=== PATIENT | female | born 1940 | race Caucasian/White ===

== ENCOUNTER → 2018-04-14 11:23 | Outpatient (CLI) | payer MEDICARE, SELFPAY ==
[2018-04-14 11:47] LABS: WBC Urine None Seen (0-5/HPF)
[2018-04-14 13:17] LABS: Add Manual Diff / Slide Review NO; Appearance Urine UA CLEAR; Basophils Percent Auto 0.7 % (0-2); Bilirubin Urine UA NEGATIVE (NEGATIVE); Color Urine UA YELLOW; Eosinophils Percent Auto 2.9 % (2-4); Glucose Urine UA NEGATIVE (Normal); Hemoglobin 12.8 g/dL (12.0-16.0); Ketones Urine UA NEGATIVE (NEGATIVE); Leukocyte Esterase Urine UA NEGATIVE (NEGATIVE); Lymphocytes Percent Auto 31.3 % (25-40); Mean Corpuscular HGB Conc 33.8 % (30-36); Mean Corpuscular Hemoglobin 29.8 PG (26-34); Mean Corpuscular Volume 88.3 fL (80-100); Monocytes Percent Auto 11.3 % (3-14); Neutrophils Absolute Auto 2300 /uL (3000-5900); Neutrophils Percent Auto 53.8 % (50-75); Nitrite Urine UA Negative (Negative); Occult Blood Urine UA TRACE-INTACT (Negative); Platelet Count 180 X10^3/uL (150-400); Protein Urine UA NEGATIVE (Negative); Red Cell Distribution Width 12.2 % (11.6-14.8); Specific Gravity Urine UA <=1.005 (1.000-1.035); Urobilinogen Urine UA 0.2 E.U./dL (0.2); White Blood Cell Count 4.2 X10^3/uL (4.5-11.0)
[2018-04-14 13:35] LABS: Bacteria Urine Occasional (0-1); Culture Indicated Urine Cult Not Indicated; RBC Urine 0-1/HPF (0-5/HPF); Squamous Epithelial Cell Urine 0-1 /HPF
[2018-04-14 13:41] LABS: BUN Creatinine Ratio 13.3 (6-22); Blood Urea Nitrogen 12 mg/dL (7-17); Calcium 9.5 mg/dL (8.4-10.2); Carbon Dioxide 33 mmol/L (22-32); Chloride 92 mmol/L (98-107); Estimated Glomerular Filt Rate > 60.0 mL/min (>60); Glucose 91 mg/dL (80-110); HEMOLYSIS < 15 (0-50); Potassium 4.3 mmol/L (3.4-5.1); Sodium 134 mmol/L (137-145)
== END ==
PROVIDERS: Family Provider Specialist; Visit Provider Orthopaedic Surgery
DX: Z01.818 Encounter for other preprocedural examination (principal); Z01.812 Encounter for preprocedural laboratory examination; N39.9 Disorder of urinary system, unspecified; R73.09 Other abnormal glucose; R31.9 Hematuria, unspecified
CPT/HCPCS: 36415; 80048; 81001; 83036; 85025; 93005

== ENCOUNTER 2018-04-25 06:34 | Inpatient (IN) | payer MEDICARE, SELFPAY ==
[2018-04-07 10:48] VITALS: BMI 23.5
[2018-04-25] VITALS (16 sets, daily range): BP systolic 88–155; BP diastolic 50–73; PULSE 53–93; RESP 12–17; TEMP 35.6–36.4; O2SAT 93–100; BMI 22.8
[2018-04-25] MEDS: VANCOMYCIN 1,000 MG/200 ML FROZ.PIGGY 200 MG IV (07:15)
[2018-04-25] MEDS: LACTATED RINGERS 1,000 ML 42 ML IV ×2 (07:15→09:58)
[2018-04-25] MEDS: ACETAMINOPHEN 325 MG TABLET 975 MG PO ×2 (07:39→22:17)
[2018-04-25] MEDS: PREGABALIN 75 MG CAPSULE PO (07:39)
[2018-04-25] MEDS: DEXAMETHASONE 10 MG/ML VIAL 8 MG IV (07:40)
[2018-04-25] MEDS: ONDANSETRON 4 MG/2 ML INJ IV ×4 (07:41→16:09)
--- NOTE | 2018-04-25 07:46 | SUR.PREOP ---
medicated with lyrica, tylenol and ondansetron and decadron- dr french aware.
--- NOTE | 2018-04-25 07:55 | SUR.PREOP ---
iv started by lizeth chacon
--- NOTE | 2018-04-25 07:59 | PM.PREOP ---
Pre-operative Note Interval Note Pre-op Check: History & Physical Reviewed by Physician and Exam Performed
[2018-04-25] MEDS: CEFAZOLIN 2 GM/100 ML FROZ.PIGGY IV ×2 (08:00→17:38)
--- NOTE | 2018-04-25 08:00 | PM.OP.1 ---
Operative Date/Time/Diagnoses Date of procedure: 04/25/18 Time of procedure: 08:10 Pre-op diagnosis: Right hip OA Post-op diagnosis: same Procedure & Clinicians Procedure: Right total hip arthroplasty Same procedure as scheduled: Yes Indications: The patient has had progressively worsening right hip pain with radiographic changes consistent with arthritis. Non-operative management has failed and the patient has requested total hip replacement. The risks, benefits and alternatives to surgery were discussed with the patient prior to proceeding. Risks discussed included, but were not limited to, failure to relieve pain, leg length discrepancy, dislocation, stiffness, infection, nerve damage, deep venous thrombosis, pulmonary embolism, stroke, coma, heart attack, permanent paralysis and , as well as the potential need for eventual revision of the prosthetic. Surgeon: Cherrie Swain Machine Puller: Van Myers Anesthesia Type: General and Spinal Operative Notes Findings: Severe right hip osteoarthritis, adequate stability Closure Type: primary Specimen(s): none sent Implants & Drains: Swain and Nephew R3 52, anthology 7 SO, +4 Applied: drain(s) Estimated Blood Loss (mL): 250 Blood products transfused: none Procedure in detail: The patient was seen in the pre-operative area, where the patient identified the right hip as the operative site and this was marked with my initials. The patient received pre-operative antibiotics and was taken to the operating room and placed on the operative table in the left lateral decubitus position after satisfactory anesthesia. A static balancer out was performed. The right leg was prepared from the ankle to the iliac crest with ChloroPrep in the usual fashion and draped through sterile drapes. The hip was approached through an approximately 20 cm incision centered over the greater trochanter and curving gently posteriorly as it went proximally. This was carried sharply to the fascia jessee, which was divided and retracted with a self retaining retractor. The trochanteric bursa was excised with care being taken to avoid the sciatic nerve, which was identified and protected throughout the case. The short external rotators were incised and the capsulomuscular flap was raised and tagged for later repair. The hip was dislocated, and a femoral neck osteotomy performed approximately 15 mm above the lesser trochanter. Retractors were placed around the femur. The canal was opened with a box cutting osteotome, followed by a T handled reamer and a lateralizing reamer. The chili pepper broach was then used, followed by sequential broaching until there was good stability of the broach in the femur. Retractors were placed to expose the acetabulum. The labrum and central soft tissues were removed. Reaming was performed initially going up in 2 mm increments, then 1 mm increments until good bite was obtained with an odd sized reamer. The cup 1 mm larger than the last reamer was then inserted using the appropriate anteversion guides. A trial neutral liner was placed. The broach was placed in the canal. A trial head and neck were then placed and the hip relocated and checked for leg length and stability. An intraoperative film confirmed the component position and no evidence of fracture. The patient was stable in the position of sleep, of squatting, and could be put through a range of motion with 45 degrees internal rotation without dislocation. At 90 degrees flexion, internal rotation to 70 degrees was possible before dislocation. This was felt to be satisfactory and the appropriate components were opened, and the trials were removed. The acetabular liner was impacted into position. The final stem was then impacted into the prepared femoral canal. A brief Betadine soak was performed while trialing with head options. The hip was meticulously irrigated with normal saline. Finally the femoral head was impacted onto the stem. The acetabulum was cleared of all material and the hip relocated one final time. The capsulomuscular flap was then repaired to the greater trochanter though an awl hole using the tag sutures. The short external rotators were repaired with a black braided nylon. A deep drain was placed and brought out anteriorly. The fascia jessee was closed with black braided nylon. The subcutaneous layer was closed with barbed sutures and SteriStrips. An Aquacel Ag dressing was applied and the patient was taken to recovery having tolerated the procedure well. Complications: none Condition: stable Disposition: Acute Care Plan for aftercare: The patient will be maintained on a standard total hip replacement protocol with weight bearing as tolerated and posterior hip precautions. The patient will receive aspirin and sequential compression devices for DVT prophylaxis. The patient will be discharged home when safe for the home environment.
--- NOTE | 2018-04-25 08:36 | SUR.OPER ---
Lateral on padded OR bed. Gel axillary roll. Arms secured on padded armboard with pillow supporting top arm. Padded hip positioner braces x4 - anterior and posterior chest and pelvis. Additional gel pad used anterior pelvis. Gel pad under bottom leg from knee to foot and secured with tape over sheet.
[2018-04-25] MEDS: BUPIVACAINE 0.25% W/ EPI 50 ML VIAL INJ (08:45)
[2018-04-25] MEDS: SODIUM CHLORIDE IRRIG SOLUTION 250 ML, EPINEPHrine 1 MG IRR (08:48)
[2018-04-25] MEDS: BUPIVACAINE LIPOSOME 266 MG/20 ML VIAL INJ (08:49)
--- NOTE | 2018-04-25 09:22 | DI.RAD.S_ITS ---
PROCEDURE: XR PELVIS 1-2V INDICATIONS: [facility] HIP TECHNIQUE: Intra-operative view of the pelvis and hip acquired. [facility] [place], XR PELVIS WITH BILATERAL LATERAL HIPS, 02/22/2018, 13:18. FINDINGS: Bones: Intraoperative devices prior to placement of arthroplasty prostheses are in expected positions. No fractures or suspicious bony lesions. Soft tissues: Overlying surgical retractors are present, along with other intraoperative changes. IMPRESSION: Intraoperative imaging of total right hip arthroplasty. Status post total left hip arthroplasty. Dictated by: Octavio Murphy M.D. on 04/25/2018 at 10:21 Approved by: Octavio Murphy M.D. on 04/25/2018 at 10:22
--- NOTE | 2018-04-25 09:24 | SUR.OPER ---
DUENTURES AND LEFT EAR HEARING AID IN LABELED CONTAINERS- TO PACU WITH PATIENT
[2018-04-25] MEDS: METOCLOPRAMIDE 10 MG/2 ML INJ IV (10:43)
--- NOTE | 2018-04-25 10:58 | SUR.PHASEI ---
PT IN STABLE CONDITION, VSS AT THIS TIME. REPORT CALLED TO CHERISE SCHOFIELD AT THIS TIME. IV SITE CLEAR. SURGICAL SITE DRESSING OBSERVED TO BE C/D/I AND HEMAVAC INTACT AT THIS TIME. SURGICAL EXTREMITIY WARM TO TOUCH, +PULSE, +SENSTATION, AND +STRENGTH. PT STATES NAUSEA AT THIS TIME IS BETTER THAN BEFORE. PT DENIES ANY HIP PAIN AT THIS TIME. PT BEING TRANSFERED TO ACUTE CARE AT THIS TIME.
--- NOTE | 2018-04-25 11:00 | DI.RAD.S_ITS ---
PROCEDURE: XR HIP W PEL IF DONE RT 2V INDICATIONS: POST OP RIGHT HIP TECHNIQUE: AP pelvis and lateral view of the right hip acquired. COMPARISON: [facility], [place], XR PELVIS 1-2V, 04/25/2018, 9:09. FINDINGS: Bones: Patient is status post right hip arthroplasty, with hardware components in expected positions. The hip joint appears congruent. The visualized bony structures appear intact. There is a prior left hip arthroplasty. Soft tissues: Overlying postoperative changes are noted. No suspicious soft tissue densities. IMPRESSION: Right hip arthroplasty with prosthesis in anatomic alignment. Dictated by: Valentín Johnson M.D. on 04/25/2018 at 12:07 Approved by: Valentín Johnson M.D. on 04/25/2018 at 12:08
--- NOTE | 2018-04-25 11:22 | SUR.PHASEI ---
PT TRANSFERED TO ACUTE CARE FLOOR IN STABLE CONDITION. PT RESTING WITH EYES CLOSED DURING TRANSPORT TO FLOOR, EASILY AROUSABLE TO VOICE WHEN SPOKEN TO. BEDSIDE REPORT GIVEN TO CHERISE SALMON. PT TRANSFERED TO CHERISE SALMON IN STABLE CONDITION.
[2018-04-25] MEDS: LORazepam 2 MG/ML SYRINGE 0.25 MG IV (12:13)
[2018-04-25] MEDS: LACTATED RINGERS 1,000 ML 125 ML IV ×2 (12:51→22:18)
--- NOTE | 2018-04-25 12:59 | PC.ADMIT ---
[address] [facility] Admission Note: Rec'd pt from PACU to rm 224 at 1105. VSS. Pt is AO x3 but WICHITA and flat affect. R hip aquacell CDI and hemovac compressed with scant sang drainage at this time. Completed admission assessment with pt. Pt states her sister is her emergency contact but isn't present at this time to give info and pt is unsure of phone numbers. Primary c/o nausea at this time which is reported to RN caring for pt. Educated pt to fall risk score, call light use, measures to prevent falls. She verbalizes understanding and demonstrates use of call light. When reviewing valuables policy with pt, pt states she arrived this AM with 2 hearing aids. On review of items, only one hearing aid is present in spec cup at bedside. Inspected bed linens and personal belongings (with pt permission) and no additional hearing aid is found. Called to PACU 1310 and discussed with BAD CREDIT COLLECTOR. BAD CREDIT COLLECTOR states she will look into it. The patient,Maricarmen Barton,77 y/o, was given written information regarding hospital policies, unit procedures and contact persons. Patient's smoking status: Never smoker. Vital Signs - 8 hr 04/25/18 07:10 04/25/18 10:10 04/25/18 10:15 Temperature 96.9 F L 97.1 F L Pulse Rate 57 L 93 H 86 Respiratory Rate 16 13 13 Blood Pressure 155/73 H 98/67 101/65 Pulse Oximetry 98 100 96 04/25/18 10:20 04/25/18 10:25 04/25/18 10:30 Temperature Pulse Rate 88 86 67 Respiratory Rate 15 13 12 Blood Pressure 88/58 L 92/60 100/55 L Pulse Oximetry 97 97 93 04/25/18 10:35 04/25/18 10:45 04/25/18 10:55 Temperature 96.4 F L 96.8 F L 96.7 F L Pulse Rate 81 72 68 Respiratory Rate 12 12 14 Blood Pressure 102/62 102/58 L 114/60 Pulse Oximetry 95 96 96 04/25/18 11:05 04/25/18 11:53 04/25/18 12:05 Temperature 97.2 F L 97.3 F L 97.3 F L Pulse Rate 58 L 55 L 57 L Respiratory Rate 17 16 17 Blood Pressure 115/59 L 114/55 L 116/57 L Pulse Oximetry 98 98 98
[2018-04-25] MEDS: SCOPOLAMINE 1 PATCH TOP (13:55)
--- NOTE | 2018-04-25 14:45 | PC.NURSE ---
Maricarmen has been nauseated during the immediate post-op period. In PACU she rec'vd Zofran and Reglan. After transfer to Acute Care she c/o increased nausea. Lorazepam 0.25 mg IV given without relief. Pt. vomited sm. amt. jello. Scopalamine patch given. Also, Repeat of Zofran IV dose. Currently sleeping. Color very pale/pasty. VSS. IV infusing. Hemovac scant amt. Ortho check WNL. Aquacel drsg. clean/dry/intact.
--- NOTE | 2018-04-25 15:24 | PC.NURSE ---
Per Marti Michelle, OR nurse, who did an additional sweep of the room in search of hearing aid, there were two hearing aids with pt. when she presented to the hospital. Thus far the missing one has not turned up.
--- NOTE | 2018-04-25 16:17 | PT.IIE ---
Current Diagnoses Unilateral primary osteoarthritis, right hip (04/25/18) Surgery Performed Operation Date: 04/25/18 07:45 Actual Procedures p Total Hip Arthroplasty(Right) - Cherrie Swain MD Surgical History (Last Updated 04/07/18 @ 11:28 by Samara Land, RN) H/O hysterectomy with unilateral oophorectomy (Acute) History of arthroplasty of left knee (Acute) History of arthroplasty of right knee (Acute) History of bilateral carpal tunnel release (Acute) History of total left hip arthroplasty (Acute) Hx of appendectomy (Acute) Hx of tonsillectomy (Acute) S/P laparotomy (Acute) Status post bilateral cataract extraction (Acute) Medical History (Last Updated 04/18/18 @ 10:51 by Samara Land RN) Arthritis (Acute) Chronic neck and back pain (Acute) Crohn's disease (Acute) Depression (Acute) Edema extremities (Acute) History of pneumonia (Acute) Hx of bladder infections (Acute) Hypothyroidism (Acute) Insomnia (Acute) Migraines (Acute) Sinus drainage (Acute) Skin cancer (Acute) Physical Therapy Inpatient Evaluation/Re-Eval M1 PT/OT-IP Prior Functional Status Start: 04/25/18 17:28 Freq: NEEDED Status: Active Protocol: Document 04/25/18 16:17 MDD (Rec: 04/25/18 17:38 MDD [email or web address]) Medical Review Prior Functional Status Medical History Reviewed Yes Mobility and Gait independent with no AD Activities of Daily Living and IADL's independent Prior Functional Level (Other details) [place] etc - now living with her son. Social History Household Members family Living Arrangements House Number of Floors (Floors) One Floor Number of Stairs To Enter/Railing? 2 steps with left sided railing to enter Home Environment Standard Height Toilet Walk in Shower Home Equipment Front Wheel Walker Straight Cane Employment Status Retired Additional Social History Comment Lives with son. Son works during the day but is able to assist when home as needed. M2 PT-IP Current Condition Start: 04/25/18 17:28 Freq: NEEDED Status: Active Protocol: Document 04/25/18 16:17 MDD (Rec: 04/25/18 17:38 MDD [email or web address]) Physical Therapy Current Condition Current Condition Evaluation Date 04/25/18 Treatment Diagnosis s/p R KRISTEN, impaired mobility, impaired gait Onset Date 04/25/18 Precautions Posterior Hip Precautions No Hip Flexion > 90 degrees No Hip Internal Rotation No Hip Adduction Weight Bearing Status Weight Bearing Status Weight Bear as Tolerated M3 PT-IP Subjective Start: 04/25/18 17:28 Freq: NEEDED Status: Active Protocol: Document 04/25/18 16:17 MDD (Rec: 04/25/18 17:38 MDD [email or web address]) Subjective Physical Therapy Visit Type Type Initial Evaluation Visit Start Time 15:40 Visit Stop Time 16:17 Total Visit Minutes 37 Number of DREDGE MASTER Visits 0 Physical Therapy Visit Comments Patient Comments Pt reports feeling very nauseous and very hungry. Attempted to eat some jello but was unable to keep it down . Therapy Pain Assessment Pain When Pain Assessed During Mobility Pain Present Pain Present Pain Reported Location right hip Intensity 2 Scale Used Numeric (1 - 10) Description Aching M4 PT-IP Mobility and Gait Start: 04/25/18 17:28 Freq: NEEDED Status: Active Protocol: Document 04/25/18 16:17 MDD (Rec: 04/25/18 17:38 MDD [email or web address]) PT-Bed Mobility Assessment Supine to Sit Supine to Sit Minimal Assistance Head of Bed Elevated Sit to Supine Sit to Supine Minimal Assistance Scooting Scooting to Edge of Bed Standby Assistance Scooting Up and Down in Bed Maximum Assistance PT-Transfer Assessment Sit to and From Stand Sit to and from Stand Contact Guard Assistance Equipment Transfer Assistive Device Front Wheeled Walker Comments Mobility Comments After standing for 1 minute, pt reported feeling very nauseous. Did not attempt additional mobility. Gait Assessment Comments Gait Comments Not performed today due to nausea and vomiting. PT-Balance Assessment Sitting Balance and Reactions Static Sitting Balance Ability Normal Dynamic Sitting Balance Ability Normal Standing Balance and Reactions Static Standing Balance Ability Good M5 PT-IP Objective Assessments Start: 04/25/18 17:28 Freq: NEEDED Status: Active Protocol: Document 04/25/18 16:17 MDD (Rec: 04/25/18 17:38 MDD [email or web address]) Orientation Orientation/Cognition Level of Alertness Alert Orientation Name Age Birthday Month Date Year Day of Week Place Situation Language Function Ability No Deficits Noted Safety Awareness Understands Safety Issues Memory Description No Deficits Noted Comments Pt with slightly slurred speech, but coherent and appropriate Gross Range of Motion Lower Extremity ROM Assessment Within Functional Limits Strength Lower Extremity Strength Assessment Within Functional Limits Coordination Assessment Gross Coordination Gross Coordination WNL Sensation Assessment Sensation Gross Sensation WNL Light Touch Intact M6 PT-IP Treatment Start: 04/25/18 17:28 Freq: NEEDED Status: Active Protocol: Document 04/25/18 16:17 MDD (Rec: 04/25/18 17:38 MDD [email or web address]) Physical Therapy Treatment Exercises Exercises Ankle Pumps Education Education Provided Precautions Weight Bearing Status Post-Op Packet Safety M7 PT-IP Assessment and Plan Start: 04/25/18 17:28 Freq: NEEDED Status: Active Protocol: Document 04/25/18 16:17 MDD (Rec: 04/25/18 17:38 MDD [email or web address]) PT Summary Assessment and Plan Potential Rehabilitation Potential Good Status of Condition at Evaluation Evolving Summary Impairments Pain ROM Bed Mobility Transfers Gait Activity Tolerance Progress Towards Goals Slow Progress - Other Assessment Summary Pt did not tolerate therapy well today due to nausea and vomiting with activity. Demonstrate good strength in LE's and required min A for bed mobility. Suspect she will continue to improve as her nausea resolves. Goals Bed Mobility Goal Independent Transfer Goal Independent Gait Goal Standby Assistance Gait Distance 150 w/ FWW Other Goals 2 steps with L railing Days to Meet Goals 2 Frequency of Treatment Frequency Of Treatment Twice a Day Treatment Plan Physical Therapy Treatment Plan Bed Mobility Training Transfer Training Gait Training Therapeutic Exercise Post Op Education Discharge Planning Other Recommendations and Next Treatment Focus on bed mobility and gait Focus training. Recommendations To Nursing Amount of Assist Needed 2 Person Assist Discharge Recommendations PT Discharge Recommendations Home with Assistance Home Health Outpatient PT Other Discharge Recommendations Pt plans on doing outpatient PT in [place], already scheduled.
[2018-04-25] MEDS: DOCUSATE 100 MG CAPSULE PO (22:16)
[2018-04-25] MEDS: ASPIRIN EC 81 MG TABLET PO (22:16)
[2018-04-26] MEDS: CEFAZOLIN 2 GM/100 ML FROZ.PIGGY IV (00:43)
[2018-04-26 00:58] VITALS: BP 89/43; PULSE 55; RESP 16; TEMP 36.5; O2SAT 96
--- NOTE | 2018-04-26 03:09 | PC.NURSE ---
IV infiltrated. IV dc'd, cath intact.
[2018-04-26 05:27] VITALS: BP 118/61; PULSE 53; RESP 16; TEMP 36.6; O2SAT 97
[2018-04-26 05:43] LABS: Hemoglobin 8.9 g/dL (12.0-16.0)
[2018-04-26] MEDS: LEVOTHYROXINE 50 MCG TABLET PO (06:38)
[2018-04-26] MEDS: ONDANSETRON 4 MG ODT PO (06:52)
[2018-04-26] MEDS: OXYCODONE IR 5 MG TABLET PO (06:53)
[2018-04-26 07:45] VITALS: BP 101/51; PULSE 50; RESP 16; TEMP 36.5; O2SAT 99
[2018-04-26] MEDS: ACETAMINOPHEN 325 MG TABLET 975 MG PO ×2 (09:01→20:25)
[2018-04-26] MEDS: FUROSEMIDE 20 MG TABLET PO (09:02)
[2018-04-26] MEDS: ASPIRIN EC 81 MG TABLET PO ×2 (09:02→20:25)
[2018-04-26] MEDS: DOCUSATE 100 MG CAPSULE PO ×2 (09:02→20:25)
[2018-04-26] MEDS: diphenhydrAMINE 25 MG TABLET PO (09:02)
[2018-04-26] MEDS: ASCORBIC ACID 500 MG TABLET PO (09:03)
[2018-04-26] MEDS: FERROUS SULFATE 325 MG TABLET PO (09:03)
--- NOTE | 2018-04-26 09:59 | PT.IPTN ---
Current Diagnoses Acute posthemorrhagic anemia (04/25/18) Unilateral primary osteoarthritis, right hip (04/25/18) Surgery Performed Operation Date: 04/25/18 07:45 Actual Procedures p Total Hip Arthroplasty(Right) - Cherrie Swain MD Physical Therapy Treatment Note M2 PT-IP Current Condition Start: 04/25/18 17:28 Freq: NEEDED Status: Active Protocol: Document 04/25/18 16:17 MDD (Rec: 04/25/18 17:38 MDD [email or web address]) Physical Therapy Current Condition Current Condition Evaluation Date 04/25/18 Treatment Diagnosis s/p R KRISTEN, impaired mobility, impaired gait Onset Date 04/25/18 Precautions Posterior Hip Precautions No Hip Flexion > 90 degrees No Hip Internal Rotation No Hip Adduction Weight Bearing Status Weight Bearing Status Weight Bear as Tolerated M3 PT-IP Subjective Start: 04/25/18 17:28 Freq: NEEDED Status: Active Protocol: Document 04/26/18 09:59 AB (Rec: 04/26/18 12:13 AB [id number]) Subjective Physical Therapy Visit Type Type Treatment Note Visit Start Time 09:59 Visit Stop Time 10:37 Total Visit Minutes 38 Number of SUPERVISOR TRAVEL TRAILER Visits 0 Physical Therapy Visit Comments Patient Comments pt want to walk Therapy Pain Assessment Pain When Pain Assessed At Rest Pain Present Pain Present Pain Reported Location right hip Intensity 5 Scale Used Numeric (1 - 10) Pain Management Techniques Apply Cold Timing of Activity with Medications M4 PT-IP Mobility and Gait Start: 04/25/18 17:28 Freq: NEEDED Status: Active Protocol: Document 04/26/18 09:59 AB (Rec: 04/26/18 12:13 AB [id number]) PT-Bed Mobility Assessment Supine to Sit Supine to Sit Moderate Assistance 1 Person Assistance PT-Transfer Assessment Sit to and From Stand Sit to and from Stand Minimal Assistance 1 Person Assistance Use of Upper Extremities Gait Assessment Gait Gait Assistance Required: Minimum Assistance Distance (Feet) (feet) 30 Able to Maintain Weight Bearing Status Yes During Gait Assistive Devices Assistive Device Gait Belt Front Wheeled Walker Gait Deviations General Gait Pattern Antalgic Decreased Stride Length Decreased Feet Clearance Factors Limiting Gait Function Factors Limiting Gait Function Decreased Activity Tolerance Decreased Strength Difficulty Following Directions Pain Poor Balance Poor Safety Awareness Comments Gait Comments pt ambulated ~ 30ft x 2 using FWW min A and cues for precautions. M5 PT-IP Objective Assessments Start: 04/25/18 17:28 Freq: NEEDED Status: Active Protocol: Document 04/25/18 16:17 MDD (Rec: 04/25/18 17:38 MDD [email or web address]) Orientation Orientation/Cognition Level of Alertness Alert Orientation Name Age Birthday Month Date Year Day of Week Place Situation Language Function Ability No Deficits Noted Safety Awareness Understands Safety Issues Memory Description No Deficits Noted Comments Pt with slightly slurred speech, but coherent and appropriate Gross Range of Motion Lower Extremity ROM Assessment Within Functional Limits Strength Lower Extremity Strength Assessment Within Functional Limits Coordination Assessment Gross Coordination Gross Coordination WNL Sensation Assessment Sensation Gross Sensation WNL Light Touch Intact M6 PT-IP Treatment Start: 04/25/18 17:28 Freq: NEEDED Status: Active Protocol: Document 04/26/18 09:59 AB (Rec: 04/26/18 12:13 AB [id number]) Physical Therapy Treatment Education Education Provided Precautions Weight Bearing Status Safety Other Treatments Other Treatment Performed pt ambulated to the toilet using FWW min A and cues. required min to mod A for controlled descent to the toilet. pt ambulated fromt he toilet to the sink min A using FWW and was able to maintain standing CGA while completing handwashing. M7 PT-IP Assessment and Plan Start: 04/25/18 17:28 Freq: NEEDED Status: Active Protocol: Document 04/26/18 09:59 AB (Rec: 04/26/18 12:13 AB [id number]) PT Summary Assessment and Plan Potential Rehabilitation Potential Fair Summary Impairments Pain ROM Strength Balance Sensation Bed Mobility Transfers Gait Activity Tolerance Progress Towards Goals Slow Progress due to Activity Tolerance Assessment Summary caregiver training set up with [id number] this afternoon. [id number] stated that she will be her in the afternoon for the training. d/c plan depending if caregiver will be able to safely assist pt at home. Goals Bed Mobility Goal Independent Transfer Goal Independent Gait Goal Standby Assistance Gait Distance 150 w/ FWW Other Goals 2 steps with L railing Days to Meet Goals 2 Frequency of Treatment Frequency Of Treatment Twice a Day Treatment Plan Physical Therapy Treatment Plan Bed Mobility Training Transfer Training Gait Training Therapeutic Exercise Post Op Education Discharge Planning Other Recommendations and Next Treatment Focus on bed mobility and gait Focus training. Recommendations To Nursing Amount of Assist Needed 2 Person Assist Discharge Recommendations PT Discharge Recommendations Home with Assistance Home Health Outpatient PT
--- NOTE | 2018-04-26 10:03 | PM.PNPO.1 ---
Subjective Date Patient Seen: 04/26/18 Time Patient Seen: 10:03 Interval history: Pt is s/p RT KRISTEN by Dr. Swain. PD1. Has not been up with PT yet. States pain tolerable with pain medication. Plan is to eventually be d/c home when medically stable. Exam Vital Signs (past 8 hours): - 04/26/18 05:27 04/26/18 07:45 Temperature 97.8 F 97.7 F Pulse Rate 53 L 50 L Respiratory Rate 16 16 Blood Pressure 118/61 101/51 L Pulse Oximetry 97 99 Oxygen Delivery Method Room Air Oxygen Flow Rate 0 Narrative Exam Narrative: Pt in bed. A&O x3. Appears comfortable. Right thigh mod swelling. Hemovac drain in. Aquacel dressing CDI. NV status intact. 5/5 rt ankle strength. Gregorio calves soft and nontender. Objective Labs Result Diagrams: 04/26/18 05:09 Labs: Laboratory Results - last 24 hr 04/26/18 05:09 Hgb 8.9 L Hct 26.0 L Assessment & Plan Post-op (1) Postoperative anemia due to acute blood loss: Problem details: Iron and Vt C ordered. for tomorrow. Current Visit: Yes Status: Acute Postoperative Procedures Operation Date: 04/25/18 07:45 Actual Procedures Side Surgeon p Total Hip Arthroplasty Right Cherrie Sonia Swain MD s/p RT KRISTEN. PD1. Continue pain meds as needed. ASA 81mg and SCDs for DVT prophylaxis. Ambulate with PT. D/C drain. Posterior hip precautions. Possible home in few days. Time Spent With Patient less than 15 minutes Quality VTE Deep Vein Thrombosis/Pulmonary Embolism Present on Admission: No
[2018-04-26 11:35] VITALS: BP 92/43; PULSE 50; RESP 15; TEMP 36.7; O2SAT 97
--- NOTE | 2018-04-26 11:48 | CM.DANOTE ---
DCP: Case received, EMR reviewed and met with patient. Introduced self and role. DCP template completed with info currently available. Pt is a 77 year old female who admitted yesterday morning to care of hospitalist team. PCP: Dr. Gooden. Payer confirmed: Medicare/[employer] Pt. admitted for R. Hip Arthroplasty. Lives independently at home, has supportive son. P: DCP will assess and plan, patient wishes to return home. May need to follow up with physical therapy, outpatient. Will consult with physical therapy on progress. Helen Mondragon RN/Kay[employer] Maker
[2018-04-26 14:01] VITALS: BMI 22.8
--- NOTE | 2018-04-26 14:20 | PC.NURSE ---
Ortho: SI think I'm hallucinating. I'm hearing people calling for me. I need to go. Pt has been disoriented most of the day. This am she thought it was from the oxycodone she received. However has had increasing disorientation. Has received no further oxycodone. Does have a scope patch, has a hx of n/v after surgery. Pharmacy called and told of patients sxs. Scope patch removed. Currently back in bed but does try to get out. Her sister in law had taken home her wallet as we were concerned it could get lost. SWhere's my wallet, I have to have surgery tomorrow. Also pt pulled out her hemovac accidently when she was trying to get oob. It had an order already to d/c it. hemovac was intact. MD Swain's office called and told of disorientation, no use of oxycodone. Removal of scope patch. Radha PA here and also notified of disorientation and interventions already in place. She will order some elec, keep informed if patient worsens or if anything else occurs. Cont w/bed/chair alarm all times, assess loc, see if any improvement from scope patch removal. Cont w/poc.
[2018-04-26 15:19] LABS: Carbon Dioxide 33 mmol/L (22-32); Chloride 86 mmol/L (98-107); HEMOLYSIS < 15 (0-50); Potassium 3.7 mmol/L (3.4-5.1); Sodium 123 mmol/L (137-145)
--- NOTE | 2018-04-26 15:35 | PC.NURSE ---
LOC/Labs: See results of electrolytes. Radha ALLISON called about results. Pt remains disoriented, does try to climb oob still but has bed alarm on and is not able to get very far. Pt knows there is something wrong and will say SI think I'm hallucinating or I think something is wrong w/me. At last check she was unaware she was in the hospital or she had surgery, thinks she needs to. Is able to be reoriented. Declined her 1500 dose of tylenol, concerned meds maybe causing her problems. Pt denies any pain at this time. Radha ALLISON discussed lab results w/Dr. Swain, they will be contacting the hospitalist. Leonides LUONG, oncoming nurse made aware. Cont w/poc, keep her safe, monitor LOC, keep MD updated on condition.
--- NOTE | 2018-04-26 16:59 | PT.IPTN ---
Current Diagnoses Acute posthemorrhagic anemia (04/25/18) Unilateral primary osteoarthritis, right hip (04/25/18) Surgery Performed Operation Date: 04/25/18 07:45 Actual Procedures p Total Hip Arthroplasty(Right) - Cherrie Swain MD Physical Therapy Treatment Note M2 PT-IP Current Condition Start: 04/25/18 17:28 Freq: NEEDED Status: Active Protocol: Document 04/25/18 16:17 MDD (Rec: 04/25/18 17:38 MDD [email or web address]) Physical Therapy Current Condition Current Condition Evaluation Date 04/25/18 Treatment Diagnosis s/p R KRISTEN, impaired mobility, impaired gait Onset Date 04/25/18 Precautions Posterior Hip Precautions No Hip Flexion > 90 degrees No Hip Internal Rotation No Hip Adduction Weight Bearing Status Weight Bearing Status Weight Bear as Tolerated M3 PT-IP Subjective Start: 04/25/18 17:28 Freq: NEEDED Status: Active Protocol: Document 04/26/18 16:58 AB (Rec: 04/26/18 16:59 AB [id number]) Subjective Physical Therapy Visit Type Notes nurse stated to put pt on hold for the afternoon due to increase confusion.
--- NOTE | 2018-04-26 17:10 | PM.CN ---
History of Present Illness Date Patient Seen: 04/26/18 Time Patient Seen: 17:10 Chief complaint: [id number] Reason for consult: Hyponatremia confusion postoperatively Narrative: 77-year-old female who underwent hip surgery per Dr. Swain successfully yesterday. Today nursing noted that she has been confused earlier in the morning and labs showed sodium down to 124 also hematocrit down to 26. Currently when I interviewed her this afternoon she was no longer confused she knew where she was and why she was here. She also notes that she was on Lasix at home she had been on it for a couple of weeks prior to the hospital stay because of some swelling in her ankles. Also takes thyroid medication PFSH Medical History Postoperative anemia due to acute blood loss (Acute) Arthritis (Acute) Chronic neck and back pain (Acute) Crohn's disease (Acute) Depression (Acute) Edema extremities (Acute) History of pneumonia (Acute) Hx of bladder infections (Acute) Hypothyroidism (Acute) Insomnia (Acute) Migraines (Acute) Sinus drainage (Acute) Skin cancer (Acute) Surgical History H/O hysterectomy with unilateral oophorectomy (Acute) History of arthroplasty of left knee (Acute) History of arthroplasty of right knee (Acute) History of bilateral carpal tunnel release (Acute) History of total left hip arthroplasty (Acute) Hx of appendectomy (Acute) Hx of tonsillectomy (Acute) S/P laparotomy (Acute) Status post bilateral cataract extraction (Acute) Social History household members: family Smoking Status: Never smoker alcohol intake: former Meds Home Medications Medication Instructions Recorded Confirmed Type acetaminophen [Tylenol] 650 mg PO PRN PRN 04/07/18 04/25/18 History diphenhydramine HCl [Benadryl 25 mg PO DAILY 04/07/18 04/07/18 History Allergy] levothyroxine 50 mcg PO DAILY 04/07/18 04/25/18 History furosemide 20 mg PO DAILY 04/18/18 04/25/18 History Allergies Allergy/AdvReac Type Severity Reaction Status Date / Time esomeprazole Allergy Intermediate Nausea Verified 04/25/18 07:03 Sulfa (Sulfonamide Allergy Mild Nausea Verified 04/25/18 07:33 Antibiotics) aspirin AdvReac Severe I blacked Verified 04/25/18 07:03 out milk AdvReac Severe GI Distress Verified 04/25/18 07:03 soybean AdvReac Severe GI Verified 04/25/18 07:03 Distress, diarrhea egg AdvReac Intermediate Occasional Verified 04/25/18 07:03 diarrhea codeine AdvReac Unknown Nausea Verified 04/25/18 07:03 metal Allergy Severe Rash any Uncoded 04/07/18 11:17 cheap jewlery Review of Systems Review of Systems All systems reviewed & are unremarkable except as noted in HPI and below Exam Vital Signs (past 8 hours): - 04/26/18 11:35 Temperature 98.0 F Pulse Rate 50 L Respiratory Rate 15 Blood Pressure 92/43 L Pulse Oximetry 97 Oxygen Delivery Method Room Air Oxygen Flow Rate 0 Narrative Exam Narrative: Thin middle-aged elderly female appears younger than her stated age of 77 appears in no acute distress HEENT exam unremarkable Lungs are clear Heart regular rhythm Abdomen soft nontender Lower extremities she is wearing the compression pneumatic hose no significant edema Neuro exam she is awake alert oriented x3. Each normal no focal deficits Objective Labs Result Diagrams: 04/26/18 05:09 04/26/18 14:55 Labs: Laboratory Results - last 24 hr 04/26/18 04/26/18 05:09 14:55 Hgb 8.9 L Hct 26.0 L Sodium 123 L Potassium 3.7 Chloride 86 L Carbon Dioxide 33 H Assessment & Plan Plan: Assessment/Plan Narrative: One. Confusion acute metabolic encephalopathy probably secondary to medications a scopolamine patch has been stopped and she has had no further pain medicine today so I would limit her narcotics and stop benzodiazepines and that should probably clear up her confusion although she seems to be pretty close to baseline at this point 2. Hyponatremia 123 is her current sodium. I suggest stopping her Lasix and her IV fluids and rechecking his electrolytes in the morning. TSH to be checked 3. Postoperative anemia 26 is her hematocrit plan to recheck that in the morning also
[2018-04-26 17:27] VITALS: BP 109/60; PULSE 52; RESP 14; TEMP 36.6; O2SAT 100
--- NOTE | 2018-04-26 18:32 | PC.NURSE ---
PATIENT PULLED HER IV OUT STATES THE NEEDLE IS BOTHERING HER AND SHE WAS NOT USING IT ANYWAY.
[2018-04-26 20:50] LABS: TSH w/ Reflex to FT4 0.56 uIU/mL (0.47-4.68)
[2018-04-26 23:03] VITALS: BP 113/78; PULSE 58; RESP 16; TEMP 36.9; O2SAT 98
[2018-04-27 00:05] VITALS: BP 125/82; PULSE 66; RESP 18; TEMP 36.9; O2SAT 96
[2018-04-27 04:59] VITALS: BP 116/71; PULSE 70; RESP 16; TEMP 37.1; O2SAT 95
[2018-04-27 05:36] LABS: Add Manual Diff / Slide Review NO; Basophils Percent Auto 0.2 % (0-2); Eosinophils Percent Auto 0.5 % (2-4); Hematocrit 25.6 % (36-46); Hemoglobin 8.9 g/dL (12.0-16.0); Lymphocytes Percent Auto 16.5 % (25-40); Mean Corpuscular HGB Conc 34.9 % (30-36); Mean Corpuscular Hemoglobin 30.7 PG (26-34); Neutrophils Absolute Auto 5300 /uL (3000-5900); Neutrophils Percent Auto 72.8 % (50-75); Platelet Count 140 X10^3/uL (150-400); Red Blood Cell Count 2.91 X10^6/uL (4.0-5.2); Red Cell Distribution Width 12.2 % (11.6-14.8); White Blood Cell Count 7.2 X10^3/uL (4.5-11.0)
[2018-04-27] MEDS: LEVOTHYROXINE 50 MCG TABLET PO (05:41)
[2018-04-27 05:44] LABS: BUN Creatinine Ratio 11.3 (6-22); Blood Urea Nitrogen 9 mg/dL (7-17); Calcium 8.6 mg/dL (8.4-10.2); Carbon Dioxide 37 mmol/L (22-32); Chloride 91 mmol/L (98-107); Estimated Glomerular Filt Rate > 60.0 mL/min (>60); Glucose 95 mg/dL (80-110); HEMOLYSIS < 15 (0-50); Potassium 3.4 mmol/L (3.4-5.1); Sodium 132 mmol/L (137-145)
--- NOTE | 2018-04-27 06:29 | PC.NURSE ---
Addendum entered by Linnea Mohr R.N. 04/27/18 07:21: Pt ate some vanilla pudding around 0630. Pt was hungry and ready for breakfast. she stated the snack will carry her over. Original Note: Addendum entered by Linnea Mohr R.N. 04/27/18 06:31: 0615- Pt awake, put hearing aids in and new batters as well. Pt up watching TV. bed alarm sounds but pt is not moving in bed. bed messed with and seems to be working now. Pt answered name, , month, year, p[resident, city questions correctly. at first pt stated that she though it was Wednesday, but then stated well no it cant be because I already had my surgery Pt then asked what day it was. oriented to date/day. Pt also knew she was in a facility but didn't entirely understand what I was asking. Pt stated well I'm in the hospital. Original Note: Assumed care of pt from outgoing shift at 2300, 7-17. Pt asleep at this time. Pt is still a little confused. pt knows she is confused. Pt ambulates well to br. does lean at times. contact at all times. Pt voids little amounts at a time. vss and taken, up to br twice. Pt drinking adequately. Pt uses call button. Pt belongings and call light within reach. will continue to monitor pt for safety. bed alarm on. side rails upx3.
[2018-04-27 08:00] VITALS: BP 111/54; PULSE 63; RESP 16; TEMP 36.8; O2SAT 96
[2018-04-27] MEDS: ACETAMINOPHEN 325 MG TABLET 975 MG PO ×3 (09:13→20:33)
[2018-04-27] MEDS: ASPIRIN EC 81 MG TABLET PO ×2 (09:13→20:33)
[2018-04-27] MEDS: ASCORBIC ACID 500 MG TABLET PO (09:13)
[2018-04-27] MEDS: FERROUS SULFATE 325 MG TABLET PO (09:13)
[2018-04-27] MEDS: diphenhydrAMINE 25 MG TABLET PO (09:13)
[2018-04-27] MEDS: DOCUSATE 100 MG CAPSULE PO ×2 (09:14→20:33)
--- NOTE | 2018-04-27 09:48 | PT.IPTN ---
Current Diagnoses Acute posthemorrhagic anemia (04/25/18) Unilateral primary osteoarthritis, right hip (04/25/18) Surgery Performed Operation Date: 04/25/18 07:45 Actual Procedures p Total Hip Arthroplasty(Right) - Cherrie Swain MD Physical Therapy Treatment Note M2 PT-IP Current Condition Start: 04/25/18 17:28 Freq: NEEDED Status: Active Protocol: Document 04/25/18 16:17 MDD (Rec: 04/25/18 17:38 MDD [id number]) Physical Therapy Current Condition Current Condition Evaluation Date 04/25/18 Treatment Diagnosis s/p R KRISTEN, impaired mobility, impaired gait Onset Date 04/25/18 Precautions Posterior Hip Precautions No Hip Flexion > 90 degrees No Hip Internal Rotation No Hip Adduction Weight Bearing Status Weight Bearing Status Weight Bear as Tolerated M3 PT-IP Subjective Start: 04/25/18 17:28 Freq: NEEDED Status: Active Protocol: Document 04/27/18 09:48 AB (Rec: 04/27/18 13:13 AB [id number]) Subjective Physical Therapy Visit Type Type Treatment Note Visit Start Time 09:48 Visit Stop Time 10:45 Total Visit Minutes 57 Number of OBSTETRICS GYN Visits 0 Therapy Pain Assessment Pain When Pain Assessed At Rest Pain Present Pain Present Pain Reported Location right hip Intensity 3 Scale Used Numeric (1 - 10) M4 PT-IP Mobility and Gait Start: 04/25/18 17:28 Freq: NEEDED Status: Active Protocol: Document 04/27/18 09:48 AB (Rec: 04/27/18 13:13 AB [id number]) PT-Bed Mobility Assessment Sit to Supine Sit to Supine Maximum Assistance 1 Person Assistance PT-Transfer Assessment Sit to and From Stand Sit to and from Stand Minimal Assistance 1 Person Assistance Equipment Transfer Assistive Device Gait Belt Front Wheeled Walker Orthotic/Prosthetic Devices or Brace: No Transfers Transfer Destination Toilet Transfer Technique pt ambulated to the toilet using FWW Comments Mobility Comments caregiver training conducted and pt's [id number] was able to assist pt with ambulation to the toilet and out. Gait Assessment Gait Gait Assistance Required: Contact Guard Assist Distance (Feet) (feet) 100 Able to Maintain Weight Bearing Status Yes During Gait Assistive Devices Assistive Device Gait Belt Front Wheeled Walker Orthotic/Prosthetic Devices or Brace: No Gait Deviations General Gait Pattern Antalgic Decreased Stride Length Decreased Feet Clearance Factors Limiting Gait Function Factors Limiting Gait Function Decreased Activity Tolerance Decreased Strength Difficulty Following Directions Pain Poor Balance Poor Safety Awareness Comments Gait Comments caregiver training conducted and caregiver was able to assist pt and provide pt cues. Stair Climbing Assessment Evaluation Level of Assist On Stairs Moderate Assistance 1 Person Assistance Devices Stair Climbing Assistive Devices Left Railing Technique/Endurance Stair Climbing Direction Ascend and Descend Stair Climbing Technique Step to Step Number of Steps Climbed 3 Query Text: Stair Climbing Set # Repetitions (reps) 4 Comments Stair Climbing Comments caregiver training conducted with stair climbing and caregiver was able to assist pt with stair. pt required max cues for safety. pt with c/o weakness towards end of steps and stating that she needs to sit down. wheeled pt back in room and BP checked: 69/83. informed nurse. assisted pt back in bed min A and cues but required max A for sit to supine. M5 PT-IP Objective Assessments Start: 04/25/18 17:28 Freq: NEEDED Status: Active Protocol: Document 04/25/18 16:17 MDD (Rec: 04/25/18 17:38 MDD [email or web address]) Orientation Orientation/Cognition Level of Alertness Alert Orientation Name Age Birthday Month Date Year Day of Week Place Situation Language Function Ability No Deficits Noted Safety Awareness Understands Safety Issues Memory Description No Deficits Noted Comments Pt with slightly slurred speech, but coherent and appropriate Gross Range of Motion Lower Extremity ROM Assessment Within Functional Limits Strength Lower Extremity Strength Assessment Within Functional Limits Coordination Assessment Gross Coordination Gross Coordination WNL Sensation Assessment Sensation Gross Sensation WNL Light Touch Intact M6 PT-IP Treatment Start: 04/25/18 17:28 Freq: NEEDED Status: Active Protocol: Document 04/27/18 09:48 AB (Rec: 04/27/18 13:13 AB [id number]) Physical Therapy Treatment Education Education Provided Precautions Weight Bearing Status Post-Op Packet Safety Other Treatments Other Treatment Performed caregiver training conducted and further caregiver training will be conducted this afternoon. M7 PT-IP Assessment and Plan Start: 04/25/18 17:28 Freq: NEEDED Status: Active Protocol: Document 04/27/18 09:48 AB (Rec: 04/27/18 13:13 AB [id number]) PT Summary Assessment and Plan Potential Rehabilitation Potential Fair Summary Impairments Pain ROM Strength Balance Coordination Sensation Tone Cognition Bed Mobility Transfers Gait Activity Tolerance Progress Towards Goals Slow Progress due to Medical Issues Slow Progress due to Activity Tolerance Assessment Summary caregiver training initiated and further training will be conducted this afternoon. pt' s [id number] was able to assist pt with transfer and ambulation/stair climbing but will need training to assist pt with bed mobility. Goals Bed Mobility Goal Independent Transfer Goal Independent Gait Goal Standby Assistance Gait Distance 150 w/ FWW Other Goals 2 steps with L railing Days to Meet Goals 2 Frequency of Treatment Frequency Of Treatment Twice a Day Treatment Plan Physical Therapy Treatment Plan Bed Mobility Training Transfer Training Gait Training Therapeutic Exercise Post Op Education Discharge Planning Other Recommendations and Next Treatment Focus on bed mobility and gait Focus training. Recommendations To Nursing Amount of Assist Needed 1 Person Assist Discharge Recommendations PT Discharge Recommendations Home with Assistance Home Health Outpatient PT
--- NOTE | 2018-04-27 10:27 | CM.DPNOTE ---
DCP: continued: Case received, EMR reviewed and discussed case in Interdisc team rounds. Outcome: OT order obtained. Met now with pt's sister in law, here for caregiver training. Pt is currently working wit PT on stairs. DEENA confirms she will be staying with pt while she recovers. Hospitalist Dr. Sethi has consulted for some mental status changes/hyponatremia. RN Edwina confirms pt is clearing well. P: home as per above when stable for same. DCP team to follow prn
--- NOTE | 2018-04-27 10:45 | PM.PNPO.1 ---
Subjective Date Patient Seen: 04/27/18 Time Patient Seen: 10:45 Interval history: PD 2. S/P RT KRISTEN by Dr. Swain. Patient and sister in room. Walked saavedra with PT but could not do stairs because she became light headed. BP dropped into 60's. Had confusion yesterday and hyponatremia and Dr. Sethi was consulted for her medical issues. Scopolamine patch was TC along with pain medications. Currently only taking Tylenol for pain and is doing well with pain control. Sodium this morning was much higher at 132 to verses 123 yesterday. Plan is for the patient to be discharged home when medically stable. Her sister will be taking care of her. Exam Vital Signs (past 8 hours): - 04/27/18 04:59 04/27/18 08:00 Temperature 98.8 F 98.2 F Pulse Rate 70 63 Respiratory Rate 16 16 Blood Pressure 116/71 111/54 L Pulse Oximetry 95 96 Oxygen Delivery Method Room Air Oxygen Flow Rate 0 Narrative Exam Narrative: Patient in bed. Alert and orient x3. Appears comfortable. Right hip dressing clean dry intact. Moderate swelling right thigh. Bilateral calves soft and nontender. 5/5 right ankle strength. Neurovascular status intact. Objective Labs Result Diagrams: 04/27/18 05:06 04/27/18 05:06 Labs: Laboratory Results - last 24 hr 04/26/18 04/26/18 04/27/18 05:09 14:55 05:06 WBC 7.2 RBC 2.91 L Hgb 8.9 L Hct 25.6 L MCV 88.0 MCH 30.7 MCHC 34.9 RDW 12.2 Plt Count 140 L Neut % (Auto) 72.8 Lymph % (Auto) 16.5 L Josephine % (Auto) 10.0 Eos % (Auto) 0.5 L Baso % (Auto) 0.2 Neut # (Auto) 5300 Sodium 123 L Potassium 3.7 Chloride 86 L Carbon Dioxide 33 H BUN Creatinine Estimated GFR BUN/Creatinine Ratio Glucose Calcium TSH 0.56 04/27/18 05:06 WBC RBC Hgb Hct MCV MCH MCHC RDW Plt Count Neut % (Auto) Lymph % (Auto) Josephine % (Auto) Eos % (Auto) Baso % (Auto) Neut # (Auto) Sodium 132 L Potassium 3.4 Chloride 91 L Carbon Dioxide 37 H BUN 9 Creatinine 0.80 Estimated GFR > 60.0 BUN/Creatinine Ratio 11.3 Glucose 95 Calcium 8.6 TSH Assessment & Plan Post-op Postoperative Procedures Operation Date: 04/25/18 07:45 Actual Procedures Side Surgeon p Total Hip Arthroplasty Right Cherrie Swain MD Postop day 2 status post right total hip arthroplasty. Patient not ready to be discharged home today. Will consult with Dr. Sethi about low blood pressures. Continue DVT prophylaxis with aspirin and SCDs. Continue pain medication with Tylenol. Continue physical therapy and posterior hip precaution. Continue iron and vitamin C for postoperative anemia. Possible discharge home tomorrow if medically stable. Time Spent With Patient less than 15 minutes Quality VTE Deep Vein Thrombosis/Pulmonary Embolism Present on Admission: No
[2018-04-27 12:00] VITALS: BP 100/55; PULSE 59; RESP 16; TEMP 36.6; O2SAT 98
--- NOTE | 2018-04-27 12:29 | PM.PN.1 ---
Subjective Date Patient Seen: 04/27/18 Time Patient Seen: 12:29 Interval history: She has had some dizziness today Exam Vital Signs (past 8 hours): - 04/27/18 04:59 04/27/18 08:00 04/27/18 12:00 Temperature 98.8 F 98.2 F 98 F Pulse Rate 70 63 59 L Respiratory Rate 16 16 16 Blood Pressure 116/71 111/54 L 100/55 L Pulse Oximetry 95 96 98 Oxygen Delivery Method Room Air Oxygen Flow Rate 0 Narrative Exam Narrative: Nurse's note of blood pressure readings down below 80 systolic while she was sitting up in a chair she was unable to do the stairs because of lightheadedness. She is resting comfortably she is eating lunch HEENT exam unremarkable Lungs are clear Heart regular rhythm Abdomen soft nontender Neuro exam unremarkable Objective Labs Result Diagrams: 04/27/18 05:06 04/27/18 05:06 Labs: Laboratory Results - last 24 hr 04/26/18 04/26/18 04/27/18 05:09 14:55 05:06 WBC 7.2 RBC 2.91 L Hgb 8.9 L Hct 25.6 L MCV 88.0 MCH 30.7 MCHC 34.9 RDW 12.2 Plt Count 140 L Neut % (Auto) 72.8 Lymph % (Auto) 16.5 L Victoria % (Auto) 10.0 Eos % (Auto) 0.5 L Baso % (Auto) 0.2 Neut # (Auto) 5300 Sodium 123 L Potassium 3.7 Chloride 86 L Carbon Dioxide 33 H BUN Creatinine Estimated GFR BUN/Creatinine Ratio Glucose Calcium TSH 0.56 04/27/18 05:06 WBC RBC Hgb Hct MCV MCH MCHC RDW Plt Count Neut % (Auto) Lymph % (Auto) Victoria % (Auto) Eos % (Auto) Baso % (Auto) Neut # (Auto) Sodium 132 L Potassium 3.4 Chloride 91 L Carbon Dioxide 37 H BUN 9 Creatinine 0.80 Estimated GFR > 60.0 BUN/Creatinine Ratio 11.3 Glucose 95 Calcium 8.6 TSH Assessment & Plan Plan: Assessment/Plan Narrative: One. Confusion probably secondary to medications resolved 2. Hyponatremia this also has resolved her but sodium this morning is 132. 3. Transient hypotension probably from volume depletion. Plan to give her a 500 cc bolus of normal saline 4. Postoperative anemia hematocrit 25. Quality VTE Deep Vein Thrombosis/Pulmonary Embolism Present on Admission: No
--- NOTE | 2018-04-27 13:14 | PT.IPTN ---
Current Diagnoses Acute posthemorrhagic anemia (04/25/18) Unilateral primary osteoarthritis, right hip (04/25/18) Surgery Performed Operation Date: 04/25/18 07:45 Actual Procedures p Total Hip Arthroplasty(Right) - Cherrie Swain MD Physical Therapy Treatment Note M2 PT-IP Current Condition Start: 04/25/18 17:28 Freq: NEEDED Status: Active Protocol: Document 04/25/18 16:17 MDD (Rec: 04/25/18 17:38 MDD [id number]) Physical Therapy Current Condition Current Condition Evaluation Date 04/25/18 Treatment Diagnosis s/p R KRISTEN, impaired mobility, impaired gait Onset Date 04/25/18 Precautions Posterior Hip Precautions No Hip Flexion > 90 degrees No Hip Internal Rotation No Hip Adduction Weight Bearing Status Weight Bearing Status Weight Bear as Tolerated M3 PT-IP Subjective Start: 04/25/18 17:28 Freq: NEEDED Status: Active Protocol: Document 04/27/18 13:14 AB (Rec: 04/27/18 15:06 AB [id number]) Subjective Physical Therapy Visit Type Type Treatment Note Visit Start Time 13:14 Visit Stop Time 13:36 Total Visit Minutes 22 Number of [employer] Visits 0 Physical Therapy Visit Comments Patient Comments pt up with nurse to use the toilet M4 PT-IP Mobility and Gait Start: 04/25/18 17:28 Freq: NEEDED Status: Active Protocol: Document 04/27/18 13:14 AB (Rec: 04/27/18 15:06 AB [id number]) PT-Bed Mobility Assessment Supine to Sit Supine to Sit Contact Guard Assistance 1 Person Assistance Sit to Supine Sit to Supine Moderate Assistance 1 Person Assistance PT-Transfer Assessment Sit to and From Stand Sit to and from Stand Contact Guard Assistance Equipment Transfer Assistive Device Gait Belt Front Wheeled Walker Comments Mobility Comments caregiver training conducted with pt's [id number] for transfers and bed mobility. [id number]-[id number] was able to assist pt safely Gait Assessment Gait Gait Assistance Required: Contact Guard Assist Distance (Feet) (feet) 15 Able to Maintain Weight Bearing Status Yes During Gait Assistive Devices Assistive Device Gait Belt Front Wheeled Walker Orthotic/Prosthetic Devices or Brace: No Gait Deviations General Gait Pattern Antalgic Comments Gait Comments pt's sister in law was able to assist pt with ambulation. M5 PT-IP Objective Assessments Start: 04/25/18 17:28 Freq: NEEDED Status: Active Protocol: Document 04/25/18 16:17 MDD (Rec: 04/25/18 17:38 MDD [id number]) Orientation Orientation/Cognition Level of Alertness Alert Orientation Name Age Birthday Month Date Year Day of Week Place Situation Language Function Ability No Deficits Noted Safety Awareness Understands Safety Issues Memory Description No Deficits Noted Comments Pt with slightly slurred speech, but coherent and appropriate Gross Range of Motion Lower Extremity ROM Assessment Within Functional Limits Strength Lower Extremity Strength Assessment Within Functional Limits Coordination Assessment Gross Coordination Gross Coordination WNL Sensation Assessment Sensation Gross Sensation WNL Light Touch Intact M6 PT-IP Treatment Start: 04/25/18 17:28 Freq: NEEDED Status: Active Protocol: Document 04/27/18 13:14 AB (Rec: 04/27/18 15:06 AB [id number]) Physical Therapy Treatment Education Education Provided Precautions Weight Bearing Status Post-Op Packet Safety M7 PT-IP Assessment and Plan Start: 04/25/18 17:28 Freq: NEEDED Status: Active Protocol: Document 04/27/18 13:14 AB (Rec: 04/27/18 15:06 AB [id number]) PT Summary Assessment and Plan Potential Rehabilitation Potential Fair Summary Impairments Pain ROM Strength Balance Coordination Sensation Tone Cognition Bed Mobility Transfers Gait Activity Tolerance Progress Towards Goals Slow Progress due to Medical Issues Slow Progress due to Activity Tolerance Assessment Summary caregiver training conducted again and [id number] was able to assist pt safely. Goals Bed Mobility Goal Independent Transfer Goal Independent Gait Goal Standby Assistance Gait Distance 150 w/ FWW Other Goals 2 steps with L railing Days to Meet Goals 2 Frequency of Treatment Frequency Of Treatment Twice a Day Treatment Plan Physical Therapy Treatment Plan Bed Mobility Training Transfer Training Gait Training Therapeutic Exercise Post Op Education Discharge Planning Other Recommendations and Next Treatment Focus on bed mobility and gait Focus training. Recommendations To Nursing Amount of Assist Needed 1 Person Assist Discharge Recommendations PT Discharge Recommendations Home with Assistance Home with 03/05 Assist
[2018-04-27] MEDS: SODIUM CHLORIDE 0.9% 500 ML 250 ML IV (14:16)
--- NOTE | 2018-04-27 15:09 | PC.NURSE ---
Ortho: Patient has been up and amb. in room to the bathroom w/nurses. Sl dizziness but no other problems. PT took pt down to the stairs and she was unable to do them due to dizziness. PT bp was rt 69/48 p 81. Her dizziness had resolved. On recheck bp lt was 83/38 p 77. Pt felt well enough to stand and get to bed which she did w/out problems. On return to bed bp rt 98/52 p 59, lt 100/51 p 61. ESTEFANY Rucker here and notified of bp and dizziness at the time she did the stairs. She said to let Dr. Sethi know the information and he was made aware. See new orders. IV restarted and IV fluids hung. Pt is more aware today and oriented. Discussed hyponatremia with her and given written information. She still gets things mixed up and can't recall much of yesterday. Has been consuming quite a bit of water and discussed with pt she may need to limit that with her sodium being lower. She reports she feels very dry sometimes and thats why she has been taking in so many fluids. Ortho has been doing well, needs cues to follow hip precautions, aquacel dressing is c/d/i. Ppp, feet =/warm. Plain tylenol has been effective for pain.
[2018-04-27 15:34] VITALS: BP 102/47; PULSE 60; RESP 16; TEMP 36.8; O2SAT 97
[2018-04-27 19:35] VITALS: BP 105/64; PULSE 63; RESP 16; TEMP 36.9; O2SAT 98
[2018-04-28 00:07] VITALS: BP 95/48; PULSE 57; RESP 16; TEMP 36.7; O2SAT 98
--- NOTE | 2018-04-28 00:35 | PC.NURSE ---
Assumed care of pt from outgoing shift at 2300, 7-18. Pt awake. complaint with assessment and vs. bp low again. 95 systolic. pt asymptomatic. pt told and reinforced to call for br assistance. will attempt to check orthostatic vs at that time. Pt does not know date or day. other orientation questions correct. Pt drinking adequately. Pt uses call button. Pt belongings and call light within reach. will continue to monitor pt for safety. bed alarm on. side rails upx3.
[2018-04-28] MEDS: LEVOTHYROXINE 50 MCG TABLET PO (05:40)
[2018-04-28 06:13] LABS: Add Manual Diff / Slide Review NO; Basophils Percent Auto 0.4 % (0-2); Eosinophils Percent Auto 0.9 % (2-4); Hematocrit 23.6 % (36-46); Hemoglobin 8.1 g/dL (12.0-16.0); Lymphocytes Percent Auto 10.3 % (25-40); Mean Corpuscular HGB Conc 34.4 % (30-36); Mean Corpuscular Hemoglobin 30.3 PG (26-34); Neutrophils Absolute Auto 5400 /uL (3000-5900); Neutrophils Percent Auto 79.4 % (50-75); Platelet Count 140 X10^3/uL (150-400); Red Blood Cell Count 2.68 X10^6/uL (4.0-5.2); Red Cell Distribution Width 12.3 % (11.6-14.8); White Blood Cell Count 6.7 X10^3/uL (4.5-11.0)
[2018-04-28 06:25] LABS: BUN Creatinine Ratio 11.4 (6-22); Blood Urea Nitrogen 8 mg/dL (7-17); Calcium 8.4 mg/dL (8.4-10.2); Carbon Dioxide 36 mmol/L (22-32); Chloride 95 mmol/L (98-107); Estimated Glomerular Filt Rate > 60.0 mL/min (>60); Glucose 99 mg/dL (80-110); HEMOLYSIS < 15 (0-50); Potassium 3.3 mmol/L (3.4-5.1); Sodium 133 mmol/L (137-145)
[2018-04-28 06:26] VITALS: BP 121/60; PULSE 79; RESP 16; TEMP 36.7; O2SAT 98
[2018-04-28 08:15] VITALS: BP 108/58; PULSE 57; RESP 16; TEMP 36.7; O2SAT 100
[2018-04-28] MEDS: ASCORBIC ACID 500 MG TABLET PO (09:21)
[2018-04-28] MEDS: diphenhydrAMINE 25 MG TABLET PO (09:21)
[2018-04-28] MEDS: ACETAMINOPHEN 325 MG TABLET 975 MG PO (09:21)
[2018-04-28] MEDS: DOCUSATE 100 MG CAPSULE PO (09:21)
[2018-04-28] MEDS: ASPIRIN EC 81 MG TABLET PO (09:22)
[2018-04-28] MEDS: FERROUS SULFATE 325 MG TABLET PO (09:22)
[2018-04-28] MEDS: POLYETHYLENE GLYCOL 3350 17 GM POWD.PACK PO (09:26)
--- NOTE | 2018-04-28 09:29 | PT.IPTN ---
Current Diagnoses Acute posthemorrhagic anemia (04/25/18) Unilateral primary osteoarthritis, right hip (04/25/18) Surgery Performed Operation Date: 04/25/18 07:45 Actual Procedures p Total Hip Arthroplasty(Right) - Cherrie Swain MD Physical Therapy Treatment Note M2 PT-IP Current Condition Start: 04/25/18 17:28 Freq: NEEDED Status: Discharge Protocol: Document 04/25/18 16:17 MDD (Rec: 04/25/18 17:38 MDD [email or web address]) Physical Therapy Current Condition Current Condition Evaluation Date 04/25/18 Treatment Diagnosis s/p R KRISTEN, impaired mobility, impaired gait Onset Date 04/25/18 Precautions Posterior Hip Precautions No Hip Flexion > 90 degrees No Hip Internal Rotation No Hip Adduction Weight Bearing Status Weight Bearing Status Weight Bear as Tolerated M3 PT-IP Subjective Start: 04/25/18 17:28 Freq: NEEDED Status: Discharge Protocol: Document 04/28/18 09:29 AB (Rec: 04/28/18 13:00 AB [id number]) Subjective Physical Therapy Visit Type Type Treatment Note Visit Start Time 09:29 Visit Stop Time 10:40 Total Visit Minutes 41 Number of CASHIER AND WAITER/WAITRESS Visits 0 Physical Therapy Visit Comments Patient Comments pt agreeable to do therapy Therapy Pain Assessment Pain When Pain Assessed At Rest Pain Present Pain Present Pain Reported Location right hip Intensity 5 Scale Used Numeric (1 - 10) Pain Management Techniques Timing of Activity with Medications M4 PT-IP Mobility and Gait Start: 04/25/18 17:28 Freq: NEEDED Status: Discharge Protocol: Document 04/28/18 09:29 AB (Rec: 04/28/18 13:00 AB [id number]) PT-Transfer Assessment Sit to and From Stand Sit to and from Stand Contact Guard Assistance Equipment Transfer Assistive Device Gait Belt Front Wheeled Walker Orthotic/Prosthetic Devices or Brace: No Transfers Transfer Destination Toilet Transfer Technique pt ambulated to the toilet using FWW CGA Transfer Ability Level of Assist Contact Guard Assistance 1 Person Assistance Comments Mobility Comments required cues to maintain hip precautions Gait Assessment Gait Gait Assistance Required: Contact Guard Assist Distance (Feet) (feet) 75 Able to Maintain Weight Bearing Status Yes During Gait Assistive Devices Assistive Device Gait Belt Front Wheeled Walker Orthotic/Prosthetic Devices or Brace: No Gait Deviations General Gait Pattern Antalgic Decreased Stride Length Decreased Feet Clearance Factors Limiting Gait Function Factors Limiting Gait Function Decreased Activity Tolerance Decreased Strength Difficulty Following Directions Poor Balance Poor Safety Awareness Stair Climbing Assessment Evaluation Level of Assist On Stairs Minimal Assistance Devices Stair Climbing Assistive Devices Left Railing Technique/Endurance Stair Climbing Direction Ascend and Descend Stair Climbing Technique Step to Step Number of Steps Climbed 3 Query Text: Stair Climbing Set # Repetitions (reps) 1 Comments Stair Climbing Comments [id number] stated that she already knows what she has to do and refused further caregiver training. M5 PT-IP Objective Assessments Start: 04/25/18 17:28 Freq: NEEDED Status: Discharge Protocol: Document 04/25/18 16:17 MDD (Rec: 04/25/18 17:38 MDD [email or web address]) Orientation Orientation/Cognition Level of Alertness Alert Orientation Name Age Birthday Month Date Year Day of Week Place Situation Language Function Ability No Deficits Noted Safety Awareness Understands Safety Issues Memory Description No Deficits Noted Comments Pt with slightly slurred speech, but coherent and appropriate Gross Range of Motion Lower Extremity ROM Assessment Within Functional Limits Strength Lower Extremity Strength Assessment Within Functional Limits Coordination Assessment Gross Coordination Gross Coordination WNL Sensation Assessment Sensation Gross Sensation WNL Light Touch Intact M6 PT-IP Treatment Start: 04/25/18 17:28 Freq: NEEDED Status: Discharge Protocol: Document 04/28/18 09:29 AB (Rec: 04/28/18 13:00 AB [id number]) Physical Therapy Treatment Education Education Provided Precautions Safety M7 PT-IP Assessment and Plan Start: 04/25/18 17:28 Freq: NEEDED Status: Discharge Protocol: Document 04/28/18 09:29 AB (Rec: 04/28/18 13:00 AB [id number]) PT Summary Assessment and Plan Potential Rehabilitation Potential Fair Summary Impairments Pain ROM Strength Balance Coordination Sensation Cognition Bed Mobility Transfers Gait Activity Tolerance Progress Towards Goals Progressing Toward Goals Assessment Summary pt plans to go home today with [id number] assisting her for 2 weeks. recommending homehealth services for pt. Goals Bed Mobility Goal Independent Transfer Goal Independent Gait Goal Standby Assistance Gait Distance 150 w/ FWW Other Goals 2 steps with L railing Days to Meet Goals 2 Frequency of Treatment Frequency Of Treatment Twice a Day Treatment Plan Physical Therapy Treatment Plan Bed Mobility Training Transfer Training Gait Training Therapeutic Exercise Post Op Education Discharge Planning Other Recommendations and Next Treatment Focus on bed mobility and gait Focus training. Recommendations To Nursing Amount of Assist Needed 1 Person Assist Discharge Recommendations PT Discharge Recommendations Home with 03/05 Assist Home Health
--- NOTE | 2018-04-28 10:52 | PM.DS.1 ---
History of Present Illness Date Patient Seen: 04/28/18 Time Patient Seen: 10:52 Chief complaint: [id number] Narrative: See preoperative history and physical for history of present illness. Discharge Providers Date of admission: 04/25/18 06:34 Consults: 04/25/18 11:57 Consult to Discharge Planning Routine Comment: Consult to Physical Therapy Evaluate & Treat Comment: Physician Instructions: post op KRISTEN protocol Consult to Respiratory Therapy Evaluate & Treat Comment: Physician Instructions: Evaluate and treat 04/26/18 15:47 Consult to Hospitalist Service Routine Comment: Consulting Provider: Albert Sethi Reason for consultation: Confusion, decrease NA Has provider been notified: Yes 04/28/18 10:50 Consult to Occupational Therapy Evaluate & Treat Comment: Status post right total hip arthroplasty Physician Instructions: Evaluate and treat Discharge provider: Tom Handy PA-C Discharge Date: 04/28/18 Summary Discharge Diagnosis: Status post right total hip arthroplasty by Dr. Swain Hospital Course: Patient brought to the hospital on 04/25/2018 for above-noted surgery. She remained stable postoperatively open orthopedically. She did develop postoperative hyponatremia confusion. She was seen by Dr. Sethi hospitalist for evaluation. Also had some mild postoperative anemia. Electrolytes were corrected and patient had gradual improvement in her confusion and dizziness. Gradually improved with physical therapy. Patient was desiring to go home on postop day 3 with her sister to help her and other family members. Status at Discharge Cognitive/behavioral status at discharge: Alert, oriented no acute distress sitting in chair. Functional status at discharge: uses cane/walker Overall status at discharge: patient is progressing back to baseline Time Spent with Patient Less than 30 minutes Exam Vital Signs (past 8 hours): - 04/28/18 06:26 04/28/18 08:15 Temperature 98.1 F 98.1 F Pulse Rate 79 57 L Respiratory Rate 16 16 Blood Pressure 121/60 H 108/58 L Pulse Oximetry 98 100 Oxygen Delivery Method Room Air Oxygen Flow Rate 0 Narrative Exam Narrative: Alert, oriented no acute distress resting in chair. Legs. Aquacel dressing to right hip is dry without drainage or inflammation. No calf pain or swelling. Pulses symmetrical. She is able to do full straight leg raise from a sitting position bilateral. Objective Labs Result Diagrams: 04/28/18 05:37 04/28/18 05:37 Labs: Laboratory Results - last 24 hr 04/28/18 04/28/18 05:37 05:37 WBC 6.7 RBC 2.68 L Hgb 8.1 L Hct 23.6 L MCV 88.0 MCH 30.3 MCHC 34.4 RDW 12.3 Plt Count 140 L Neut % (Auto) 79.4 H Lymph % (Auto) 10.3 L Grainger % (Auto) 9.0 Eos % (Auto) 0.9 L Baso % (Auto) 0.4 Neut # (Auto) 5400 Sodium 133 L Potassium 3.3 L Chloride 95 L Carbon Dioxide 36 H BUN 8 Creatinine 0.70 Estimated GFR > 60.0 BUN/Creatinine Ratio 11.4 Glucose 99 Calcium 8.4 Discharge Plan Discharge Plan Patient Disposition: Home, Self-Care Discharge comment: Right total hip precautions for 6 weeks postop. Discharge Med Rec/Prescriptions Prescriptions: No Action diphenhydramine HCl [Benadryl Allergy] 25 mg Tablet 25 mg PO DAILY RF: 0 acetaminophen [Tylenol] 325 mg Capsule 650 mg PO PRN PRN (Reason: pain) RF: 0 levothyroxine 50 mcg Capsule 50 mcg PO DAILY RF: 0 furosemide 20 mg Tablet 20 mg PO DAILY RF: 0 Provider Discharge Instructions Diet: Diet as Tolerated Activity: Total hip precautions x6 weeks postop. Wound Care Report to your healthcare provider any signs of infection, such as:: chills, fever, night sweats, increased pain and unusual drainage Dressing: Keep dressing in place until postop visit. Visit Report/Discharge Packet Instructions: DI for Hip Replacement, DI for Constipation, DI for Hyponatremia Discharge Data Attending Provider: Cherrie Swain Admit Date/Time: 04/25/18 06:34 Quality VTE Deep Vein Thrombosis/Pulmonary Embolism Present on Admission: No
--- NOTE | 2018-04-28 12:08 | PC.NURSE ---
Day shift: Left unit at approx 1150. Used WC. She got into private vehicle w/ her sister driving. She did well getting into it. HAs all persoanl belongings. Paperwork signed and all questions answered. No new scrips ordered. She has her own FWW.
--- NOTE | 2018-04-28 12:33 | CM.DPC ---
DCP Cont: Patient is to be discharged home today. Will be picked up by friend today. Helen Mondragon RN/Ethics Officer
== END 2018-04-28 12:09 | disposition home or self-care (01) | DRG 469 ==
PROVIDERS: Internal Medicine; Physician Assistant Surgical; Admitting Provider Orthopaedic Surgery; Family Provider Specialist; Visit Provider Orthopaedic Surgery
PROC: 0SR90JZ Replacement of Right Hip Joint with Synthetic Substitute, Open Approach (ICD-10-PCS; CPT 27130; principal; 2018-04-25 07:45)
DX: M16.11 Unilateral primary osteoarthritis, right hip (principal); G92 Toxic encephalopathy; K50.90 Crohn's disease, unspecified, without complications; D62 Acute posthemorrhagic anemia; E87.1 Hypo-osmolality and hyponatremia; R60.9 Edema, unspecified; E04.2 Nontoxic multinodular goiter; E03.9 Hypothyroidism, unspecified; G43.909 Migraine, unspecified, not intractable, without status migrainosus; K21.9 Gastro-esophageal reflux disease without esophagitis; Z96.653 Presence of artificial knee joint, bilateral; Z96.642 Presence of left artificial hip joint; G47.00 Insomnia, unspecified; F32.9 Major depressive disorder, single episode, unspecified; T44.3X5A Adverse effect of other parasympatholytics [anticholinergics and antimuscarinics] and spasmolytics, initial encounter; E86.9 Volume depletion, unspecified
CPT/HCPCS: 72170; 73502; 80048; 80051; 84443; 85014; 85018; 85025; 97116; 97161; 97530; C1776; C9290; J0171; J0330; J0690; J1100; J1170; J2060; J2250; J2405; J2704; J2765; J3010; J3370

== ENCOUNTER 2019-01-05 18:59 | Observation (INO) | payer MEDICARE, SELFPAY ==
[2019-01-05] VITALS (9 sets, daily range): BP systolic 113–172; BP diastolic 52–78; PULSE 54–71; RESP 7–18; TEMP 36.1–36.7; O2SAT 93–97; BMI 24.9
--- NOTE | 2019-01-05 | DI.RAD.S_ITS ---
PROCEDURE: XR HIP W PEL IF DONE RT 2V INDICATIONS: RE-LOCATED RIGHT HIP INTRA-OPERATIVE TECHNIQUE: 2 intraoperative fluoroscopic view(s) of the hip acquired. COMPARISON: [facility], CR, XR HIP W PEL IF DONE RT 2V, 04/25/2018, 10:22. [facility], RG, XR HIP 1V RIGHT, 01/05/2019, 19:42. FINDINGS: Intraoperative fluoroscopic images of right hip shows reduction of previously noted posterior superior dislocation of right hip joint prosthesis. Right hip alignment is now anatomic. IMPRESSION: Fluoroscopy guidance was used intraoperatively for reduction of right hip prosthesis dislocation. Dictated by: Herb Moore M.D. on 01/06/2019 at 8:35 Approved by: Herb Moore M.D. on 01/06/2019 at 8:37
--- NOTE | 2019-01-05 20:37 | PM.HP.1 ---
History of Present Illness Date Patient Seen: 01/05/19 Time Patient Seen: 20:57 Chief complaint: dislocated Right Hip Narrative: This is a pleasant 78-year-old female who has a history of a left total hip arthroplasty many years ago and then had a right total hip arthroplasty about 8 months ago. She was out in the garden today when she fell backwards landed on her right buttocks and noted the acute onset of right hip and buttocks pain. She was transported to [facility] where she was diagnosed with a right hip dislocation and she underwent 2 unsuccessful attempted closed reductions. Orthopedic consultation was requested and she was transferred to [facility]. Patient History Medical History Postoperative anemia due to acute blood loss (Acute) Arthritis (Acute) Chronic neck and back pain (Acute) Crohn's disease (Acute) Depression (Acute) Edema extremities (Acute) History of pneumonia (Acute) Hx of bladder infections (Acute) Hypothyroidism (Acute) Insomnia (Acute) Migraines (Acute) Sinus drainage (Acute) Skin cancer (Acute) Surgical History H/O hysterectomy with unilateral oophorectomy (Acute) History of arthroplasty of left knee (Acute) History of arthroplasty of right knee (Acute) History of bilateral carpal tunnel release (Acute) History of total left hip arthroplasty (Acute) Hx of appendectomy (Acute) Hx of tonsillectomy (Acute) S/P laparotomy (Acute) Status post bilateral cataract extraction (Acute) Social History household members: family Smoking Status: Never smoker alcohol intake: former Family & Social History Social History: household members family Tobacco & Substance use: Smoking Status Never smoker alcohol intake former alcohol intake frequency holiday/special occasion Substance Use Type does not use Meds Home Medications Medication Instructions Recorded Confirmed Type acetaminophen [Tylenol] 650 mg PO PRN PRN 04/07/18 04/25/18 History diphenhydramine HCl [Benadryl 25 mg PO DAILY 04/07/18 04/07/18 History Allergy] levothyroxine 50 mcg PO DAILY 04/07/18 04/25/18 History furosemide 20 mg PO DAILY 04/18/18 04/25/18 History Allergies Allergy/AdvReac Type Severity Reaction Status Date / Time esomeprazole Allergy Intermediate Nausea Verified 04/25/18 07:03 Sulfa (Sulfonamide Allergy Mild Nausea Verified 04/25/18 07:33 Antibiotics) aspirin AdvReac Severe I blacked Verified 04/25/18 07:03 out milk AdvReac Severe GI Distress Verified 04/25/18 07:03 soybean AdvReac Severe GI Verified 04/25/18 07:03 Distress, diarrhea egg AdvReac Intermediate Occasional Verified 04/25/18 07:03 diarrhea codeine AdvReac Unknown Nausea Verified 04/25/18 07:03 metal Allergy Severe Rash any Uncoded 04/07/18 11:17 cheap [employer] Review of Systems Review of Systems She denies chest pain lightheadedness or dizziness prior to her fall. She tripped over something in the garden and did land directly on her right hip. She has had some ongoing problems with her low back has been evaluated for spinal stenosis and had a recent epidural cortisone injection. she has had some ongoing mild aching into the right hip. she denies a history of recent fever chills, she has chronic problems with Crohn's disease. Exam Narrative Exam Narrative: She is easily arousable inappropriate she is oriented but her pupils are clearly pinpoint HEENT is atraumatic. Cor is regular rate and rhythm lungs are clear abdomen soft and benign the left lower extremity is not remarkable except for a healed left knee incision in the left posterolateral hip incision she has no pain with range of motion into the left leg the right leg is remarkable for a foreshortened extremity with internal rotation. she can fire her toes on the right with trace motion the foot is warm with adequate capillary refill Assessment & Plan Assessment & Plan narrative: Traumatic right hip dislocation after a right total hip arthroplasty. I have recommended closed reduction with the un likelihood of possible open reduction. Her x-rays were done at [facility] despite specifically asking them to send a disc with her they did not send a disc with her. Her clinical exam clearly shows a posterior dislocation reportedly after the 2nd attempted reduction there was a popping sound her sensation on my operative plan is to transfer to a fluoroscopic table sedate her and get x-rays prior to attempted close reduction. Limits of the procedure options risks benefits and complication as well as possibility of inability to reduce the hip requiring secondary open reduction probably tomorrow was discussed with the patient. she understands and agrees and gives consent.
[2019-01-05] MEDS: LACTATED RINGERS 1,000 ML 42 ML IV (21:20)
--- NOTE | 2019-01-05 21:59 | PM.OP.1 ---
Operative Date/Time/Diagnoses Date of procedure: 01/05/19 Time of procedure: 21:41 Pre-op diagnosis: right hip dislocation Post-op diagnosis: same Procedure & Clinicians Procedure: Closed reduction right hip Same procedure as scheduled: Yes Indications: This is a 78-year-old female who is about 9 months status post a right total hip arthroplasty. She was out in the garden today when she slipped and fell and landed on her right hip. She noted acute onset of right hip pain and right leg shortening and was taken to [facility] where she was noted to have a right hip dislocation. Surgeon: Cherrie Swain Anesthesia Type: General Operative Notes Findings: Posterior hip dislocation, reduced without difficulty with flexion 80 adduction and longitudinal traction. Adequate stability post reduction. Closure Type: not applicable Specimen(s): none sent Procedure in detail: Patient was taken to the operating room. She underwent induction of a general anesthesia. time-out was performed. fluoroscopic images were obtained which showed a right posterior hip dislocation. The patient was under anesthesia. Her right hip was hyperflexed and longitudinal traction was applied to the right hip while the pelvis was stabilized. The hip was gently reduced. it was reduced without difficulty. Leg lengths appeared symmetrical. She has placed her gentle range of motion and appeared to be stable in high flexion with internal rotation. the x-ray AP and cross-table lateral confirmed concentric reduction. Patient tolerated the procedure well. Complications: none Condition: stable Disposition: Acute Care Plan for aftercare: Patient can be weight-bearing as tolerated the right lower extremity. Will have Physical therapy evaluate her tomorrow and go over posterior hip precautions. She can be discharged to home tomorrow if she is safe with therapy.
[2019-01-06 00:30] VITALS: BP 150/73; PULSE 75; RESP 16; TEMP 36.4; O2SAT 94
[2019-01-06 01:25] VITALS: BMI 24.5
[2019-01-06 02:02] VITALS: BP 144/68; PULSE 56; RESP 16; TEMP 36.8; O2SAT 98
[2019-01-06 06:01] VITALS: BP 132/63; PULSE 59; RESP 16; TEMP 36.4; O2SAT 99
--- NOTE | 2019-01-06 06:58 | PC.ADMIT ---
Addendum entered by Tabitha Bennett R.N. 01/06/19 07:03: Patient slept most of shift. Able to void additional 525cc of urine this morning. Able to lift leg further off bed and CMS remains intact. Hoping to be able to discharge today after being seen by PT. Denies any pain. Original Note: 0200 Patient was admitted on previous shift at approximately 2230 from PACU following closed reduction of dislocated right hip. Currently is alert and oriented. Very MARSHALL but does not currently have hearing aids in. Breath sounds CTA with RA sat of 98%. HRR. Denies nausea. BT hypoactive and has not yet passed any flatus. Assisted to use bedpan and able to void 850cc urine. Is able to turn in bed; pillow is between knees. States she had KRISTEN in May and yesterday fell while gardening and dislocated right hip. CMS is intact but only able to lift right leg 1-2 inches off bed. Denies any pain. SCD's were applied at change of shift. Is unable to remember doses of home meds so will need to update in a.m. when pharmacy is open. Fall risk score is high and bed alarm is activated. Provided toast, yogurt and jello but ate only bites. Oriented to room, call light and bed controls. [address] Admission Note: The patient,Maricarmen Barton,78 y/o, was given written information regarding hospital policies, unit procedures and contact persons. Patient's smoking status: Never smoker. Vital Signs - 8 hr 01/05/19 23:00 01/05/19 23:30 01/06/19 00:30 Temperature 97.3 F L 98.0 F 97.6 F Pulse Rate 65 63 75 Respiratory Rate 15 18 16 Blood Pressure 147/72 H 147/77 H 150/73 H Pulse Oximetry 93 95 94 01/06/19 02:02 01/06/19 06:01 Temperature 98.3 F 97.6 F Pulse Rate 56 L 59 L Respiratory Rate 16 16 Blood Pressure 144/68 H 132/63 Pulse Oximetry 98 99
[2019-01-06 07:45] LABS: Hematocrit 37.1 % (36-46); Hemoglobin 12.1 g/dL (12.0-16.0); Mean Corpuscular HGB Conc 32.6 % (30-36); Mean Corpuscular Hemoglobin 28.7 PG (26-34); Mean Corpuscular Volume 88.1 fL (80-100); Platelet Count 174 X10^3/uL (150-400); Red Blood Cell Count 4.21 X10^6/uL (4.0-5.2); Red Cell Distribution Width 12.4 % (11.6-14.8); White Blood Cell Count 6.4 X10^3/uL (4.5-11.0)
[2019-01-06] MEDS: ACETAMINOPHEN 325 MG TABLET 975 MG PO (08:31)
[2019-01-06] MEDS: LEVOTHYROXINE 50 MCG TABLET PO (08:32)
[2019-01-06] MEDS: FUROSEMIDE 20 MG TABLET PO (08:32)
--- NOTE | 2019-01-06 09:26 | P.DS_ITS ---
History of Present Illness Date Patient Seen: 01/06/19 Chief complaint: dislocated Right Hip Narrative: Patient seen bedside s/p closed reduction R. prosthetic hip. Patient is doing well, has no pain that is beyond her baseline. She has not worked with therapy yet. She would like to go home today. Discharge Providers Date of admission: 01/05/19 18:59 Discharge Date: 01/06/19 Consults: 01/06/19 00:36 Consult to Discharge Planning Routine Comment: Consult to Physical Therapy Evaluate & Treat Comment: wbat, review posterior hip precautions Physician Instructions: Evaluate and Treat Consult to Respiratory Therapy Evaluate & Treat Comment: Physician Instructions: Evaluate and treat Discharge provider: Abby Bonilla PA-C Summary Discharge Diagnosis: Dislocation of right hip prosthetic Hospital Course: patient was admitted to the hospital on 01/05/2019 with a di slocated right hip prosthesis. She is taken to the OR by Dr. Swain for a closed reduction which the patient tolerated the procedure well. Hip was reduced. Patient was then transitioned to the outpatient floor where she was seen by physical therapy who emphasized posterior hip precautions. She is stable and ready for discharge on 01/06/2019. Status at Discharge Cognitive/behavioral status at discharge: oriented Functional status at discharge: independent ambulation Overall status at discharge: patient is progressing back to baseline Time Spent with Patient Less than 30 minutes Exam Vital Signs (past 8 hours): - 01/06/19 02:02 01/06/19 06:01 Temperature 98.3 F 97.6 F Pulse Rate 56 L 59 L Respiratory Rate 16 16 Blood Pressure 144/68 H 132/63 Pulse Oximetry 98 99 Oxygen Delivery Method Room Air Oxygen Flow Rate 0 Narrative Exam Narrative: well-developed well-nourished no acute distress alert and oriented x3. No swelling seen on the right hip and patient is neurovascularly intact in the right lower extremity. 2+ pulses. Calf is soft and compressible. Objective Labs Result Diagrams: 01/06/19 06:18 Labs: Laboratory Results - last 24 hr 01/06/19 06:18 WBC 6.4 RBC 4.21 Hgb 12.1 Hct 37.1 MCV 88.1 MCH 28.7 MCHC 32.6 RDW 12.4 Plt Count 174 Discharge Plan Discharge Plan Patient Disposition: Home Discharge Med Rec/Prescriptions Prescriptions: Continued acetaminophen [Tylenol] 325 mg Capsule 650 mg PO Q4H PRN (Reason: pain) RF: 0 levothyroxine 50 mcg Capsule 50 mcg PO DAILY RF: 0 furosemide 20 mg Tablet 20 mg PO DAILY RF: 0 Follow up/Referrals: Cherrie Swain MD [Physician] - (As needed) Provider Discharge Instructions Diet: Diet as Tolerated Skin/Wound/Dressing Care Report to your healthcare provider any signs of infection, such as:: chills, fever, night sweats, increased pain, unusual drainage and unusual redness Visit Report/Discharge Packet Instructions: DI for Hip Dislocation -- Adult Discharge Data Attending Provider: Cherrie Swain Admit Date/Time: 01/05/19 18:59 Discharges patient from system. Discharge Date/Time: 01/06/19 13:36 Quality VTE Deep Vein Thrombosis/Pulmonary Embolism Present on Admission: No
--- NOTE | 2019-01-06 09:57 | PC.NURSE ---
Pt is A&ox3. She denies pain and was given tylenol this am. Pts skin is clear, R.hip with 0 swelling and pt is going to work with her now. Ate well at breakfast and pt may be discharging home later today.
[2019-01-06 10:32] VITALS: BP 123/60; PULSE 56; RESP 17; TEMP 36.9; O2SAT 98
--- NOTE | 2019-01-06 11:49 | PT.IIE ---
Surgery Performed Operation Date: 01/05/19 21:20 Actual Procedures p Closed Reduction Dislocated Hip(Right) - Cherrie Swain MD Surgical History (Last Reviewed 01/05/19 @ 21:35 by Cherrie Swain MD) H/O hysterectomy with unilateral oophorectomy (Acute) History of arthroplasty of left knee (Acute) History of arthroplasty of right knee (Acute) History of bilateral carpal tunnel release (Acute) History of total left hip arthroplasty (Acute) Hx of appendectomy (Acute) Hx of tonsillectomy (Acute) S/P laparotomy (Acute) Status post bilateral cataract extraction (Acute) Medical History (Last Reviewed 01/05/19 @ 21:35 by Cherrie Swain MD) Postoperative anemia due to acute blood loss (Acute) Arthritis (Acute) Chronic neck and back pain (Acute) Crohn's disease (Acute) Depression (Acute) Edema extremities (Acute) History of pneumonia (Acute) Hx of bladder infections (Acute) Hypothyroidism (Acute) Insomnia (Acute) Migraines (Acute) Sinus drainage (Acute) Skin cancer (Acute) Physical Therapy Inpatient Evaluation/Re-Eval M1 PT/OT-IP Prior Functional Status Start: 01/06/19 11:31 Freq: NEEDED Status: Active Protocol: Document 01/06/19 10:20 (Rec: 01/06/19 11:49 [email or web address]) Medical Review Prior Functional Status Medical History Reviewed Yes Diet/Fluid Consistency Regular Communication No deficits noted. Able to make needs known Mobility and Gait Pt was an independent ambulator at home and community without AD. Pt usually work out at the gym 3 times /week , and go to town to visit friends. Activities of Daily Living and IADL's Pt was independent with ADLs and IADLs without AD. Social History Household Members family Living Arrangements House Number of Floors (Floors) One Floor Number of Stairs To Enter/Railing? 2 ARPIT with L railing. Home Environment High Toilet Walk in Shower Home Equipment Raised Toilet Seat Without Armrests Grab Bars Near Toilet Employment Status Retired Additional Social History Comment Pt lives with his son in a 1 level home with 2 ARPIT. Pt works in [employer] and only stays home 2-3 days during the week. But he will be home for this weekend to be a CG for PT. Pt also stated she has friends and neighbors will be available to help if needed. Pt was very active and independent prior to surgery. Pt had a R hip sx in May last year and was able to fully recover. M2 PT-IP Current Condition Start: 01/06/19 11:31 Freq: NEEDED Status: Active Protocol: Document 01/06/19 10:20 HH (Rec: 01/06/19 11:49 [email or web address]) Physical Therapy Current Condition Current Condition Evaluation Date 01/06/19 Treatment Diagnosis R KRISTEN post approach, impaired gait and activity tolerance Onset Date 01/05/19 Precautions Posterior Hip Precautions No Hip Flexion > 90 degrees No Hip Internal Rotation No Hip Adduction Weight Bearing Status Weight Bearing Status Weight Bear as Tolerated M3 PT-IP Subjective Start: 01/06/19 11:31 Freq: NEEDED Status: Active Protocol: Document 01/06/19 10:20 HH (Rec: 01/06/19 11:49 [email or web address]) Subjective Physical Therapy Visit Type Type Initial Evaluation Visit Start Time 10:20 Visit Stop Time 10:40 Total Visit Minutes 20 Number of QUARRY SUPERVISOR Visits 0 Physical Therapy Visit Comments Patient Comments I dont really have pain. Patient Goals To return home with his son. Therapy Pain Assessment Pain Present Pain Present Denied Pain M4 PT-IP Mobility and Gait Start: 01/06/19 11:31 Freq: NEEDED Status: Active Protocol: Document 01/06/19 10:20 HH (Rec: 01/06/19 11:49 [email or web address]) PT-Bed Mobility Assessment Rolling Type of Rolling Roll to Left Level of Assist Standby Assistance Supine to Sit Supine to Sit Standby Assistance Head of Bed Elevated Bedrails Sit to Supine Sit to Supine Standby Assistance Head of Bed Elevated Bedrails Scooting Scooting to Edge of Bed Standby Assistance PT-Transfer Assessment Sit to and From Stand Sit to and from Stand Standby Assistance Use of Upper Extremities Equipment Transfer Assistive Device Gait Belt Front Wheeled Walker Orthotic/Prosthetic Devices or Brace: No Transfers Transfer Destination Bed Chair Toilet Transfer Technique Stand Step Pivot Transfer Ability Level of Assist Standby Assistance Use of Upper Extremities Gait Assessment Gait Gait Assistance Required: Standby Assistance Distance (Feet) 120 Able to Maintain Weight Bearing Status Yes During Gait Assistive Devices Assistive Device Gait Belt Front Wheeled Walker Orthotic/Prosthetic Devices or Brace: No Gait Deviations General Gait Pattern Antalgic Decreased Stride Length Decreased Feet Clearance Step-to Gait Factors Limiting Gait Function Factors Limiting Gait Function Decreased Activity Tolerance Decreased Strength Limited Range of Motion Pain Poor Balance Comments Gait Comments Pt amb from EOB to bathroom for toileting then amb to hallway for a total of 120 feet with SBA. She then returned to chair. Pt demonstrated very steady and safe transfer techniques without signs of distress and LOB. Pt started with step to gait for first 40 feet followed by step through. PT-Balance Assessment Sitting Balance and Reactions Static Sitting Balance Ability Normal Dynamic Sitting Balance Ability Normal Standing Balance and Reactions Static Standing Balance Ability Good Dynamic Standing Balance Ability Good Device Used FWW M5 PT-IP Objective Assessments Start: 01/06/19 11:31 Freq: NEEDED Status: Active Protocol: Document 01/06/19 10:20 (Rec: 01/06/19 11:49 [email or web address]) Orientation Orientation/Cognition Level of Alertness Alert Orientation Name Age Birthday Month Date Year Day of Week Place Situation Language Function Ability No Deficits Noted Hard of Hearing Safety Awareness Understands Safety Issues Memory Description No Deficits Noted Gross Range of Motion Upper Extremity ROM Assessment Within Functional Limits Lower Extremity ROM Assessment Within Functional Limits Strength Upper Extremity Strength Assessment Within Functional Limits Lower Extremity Strength Assessment Within Functional Limits Coordination Assessment Gross Coordination Gross Coordination WNL Sensation Assessment Sensation Gross Sensation WNL Light Touch Intact Proprioception (Position) Intact Muscle Tone Muscle Tone WNL Yes M6 PT-IP Treatment Start: 01/06/19 11:31 Freq: NEEDED Status: Active Protocol: Document 01/06/19 10:20 HH (Rec: 01/06/19 11:49 [email or web address]) Physical Therapy Treatment Exercises Exercises Ankle Pumps Gluteal Sets Quad Sets Heel Slides Straight Leg Raises Education Education Provided Precautions Weight Bearing Status Post-Op Packet Safety M7 PT-IP Assessment and Plan Start: 01/06/19 11:31 Freq: NEEDED Status: Active Protocol: Document 01/06/19 10:20 (Rec: 01/06/19 11:49 [email or web address]) PT Summary Assessment and Plan Potential Rehabilitation Potential Excellent Status of Condition at Evaluation Stable Summary Impairments Pain ROM Strength Bed Mobility Transfers Gait Activity Tolerance Assessment Summary Pt is a very pleasant 78 yo female POD #2 R KRISTEN due to R hip dislocation after a fall yesterday. Pt was able to amb 120 ft, toilet transfer and bed mobility with FWW SBA. Pt was very steady and has a good understanding on post op precautions. She denies pain and discomfort. Pt states her son/ neighbors will pick her up for discharge and her son will stay with her for next couple days. she feels very safe to be d/c home at this point. Pt is expected to be d/ c home with outpatient PT once she is medically stable. Goals Bed Mobility Goal Independent Transfer Goal Independent Front Wheeled Walker Gait Goal Independent Front Wheel Walker Gait Distance 200 Frequency of Treatment Frequency Of Treatment Twice a Day Treatment Plan Physical Therapy Treatment Plan Bed Mobility Training Transfer Training Gait Training Therapeutic Exercise Balance Retraining Post Op Education Discharge Planning Hot or Cold Pack Other Recommendations and Next Treatment transfer and gait training as Focus juanita review precautions Recommendations To Nursing Amount of Assist Needed Standby Assistance Discharge Recommendations PT Discharge Recommendations Home with Assistance Outpatient PT
--- NOTE | 2019-01-07 12:03 | CM.IDA ---
Late Entry/DCP Assessment Note: Pt admitted under observation status 3.28.19 for hip surgery w/ Dr Swain. Payer: Medicare/[employer]. Pt was DC home POD#1, PT and Ortho team cleared pt for return home. This PARTS CONTROL CLERK met w/pt breifly as she was finishing her session w/ PT; she explained that she is indp. at baseline and intends to DC home w/assist from her son this w/e. She also has friends that are prepared to check on her this week. Outpt therapy recommended. DC home Wednesday w/ no barriers. REYMUNDO Barrios
== END 2019-01-06 13:36 | disposition home or self-care (01) ==
PROVIDERS: Admitting Provider Orthopaedic Surgery; Family Provider Specialist; Visit Provider Orthopaedic Surgery
PROC: (CPT 27266; principal; 2019-01-05 21:20)
DX: T84.020A Dislocation of internal right hip prosthesis, initial encounter (principal); W01.0XXA Fall on same level from slipping, tripping and stumbling without subsequent striking against object, initial encounter
CPT/HCPCS: 27266; 36415; 73502; 76000; 85027; 97161; G0378; G0379; J2704

== ENCOUNTER 2019-04-25 23:22 | Inpatient (IN) | payer MEDICARE, SELFPAY ==
[2019-04-25 23:22] VITALS: BP 180/70; PULSE 61; RESP 20; TEMP 37.1; O2SAT 100
--- NOTE | 2019-04-25 23:26 | DI.RAD.S_ITS ---
PROCEDURE: XR HIP W PEL IF DONE RT 2V INDICATIONS: right hip dislocation TECHNIQUE: AP pelvis with lateral view(s) of the right hip(s). COMPARISON: [facility], , XR HIP W PEL IF DONE RT 2V, 01/05/2019, 20:48. FINDINGS: Bones: There is a posterior superior dislocation of the right hip arthroplasty. Left hip arthroplasty is intact. No fractures visualized. Soft tissues: The visualized bowel gas pattern is normal. No suspicious soft tissue calcifications. IMPRESSION: Dislocation of the right hip arthroplasty. Dictated by: Bhumika Brooke M.D. on 04/26/2019 at 8:31 Approved by: Bhumika Brooke M.D. on 04/26/2019 at 8:32
--- NOTE | 2019-04-25 23:39 | PC.NURSE ---
pt to xray on stretcher with tech
--- NOTE | 2019-04-25 23:41 | DI.RAD.S_ITS ---
PROCEDURE: XR CHEST 1V INDICATIONS: fall TECHNIQUE: One view of the chest was acquired. COMPARISON: None. FINDINGS: Surgical changes and devices: None. Lungs and pleura: Lungs are clear. No pleural effusions or pneumothorax. Mediastinum: Mediastinal contours appear normal. Heart size is normal. Bones and chest wall: No suspicious bony lesions. Overlying soft tissues appear unremarkable. IMPRESSION: No acute cardiopulmonary findings. Dictated by: Bhumika Brooke M.D. on 04/26/2019 at 8:32 Approved by: Bhumika Brooke M.D. on 04/26/2019 at 8:33
--- NOTE | 2019-04-25 23:41 | ED_ITS ---
HPI - Extremity Injury (Lower) General Chief Complaint: Extremity Injury, Lower Stated Complaint: Dislocated Hip Time Seen by Provider: 04/25/19 23:36 Source: patient, EMS and other Mode of arrival: EMS Limitations: no limitations History of Present Illness HPI Narrative: A 78-year-old female comes emergency department with complaint of right hip pain/dislocation. Patient is transferred from [facility] the ER to our emergency department by her request. Patient normally sees Dr. jorge Swain for orthopedic surgery. They did not have any orthopedic surgery available. They did not attempt to reduce her dislocation is patient states she has a difficult dislocation. Dr. Moore did not accept the patient for transfer but asked for patient to come to the ER. Patient states that she has some pain radiating down towards the knee. Patient denies any numbness or tingling. Patient can feel sensation to light touch. She denies any chest pain shortness of breath. She denies any injury to her head neck or back. She denies any urinary or GI issues today. She did have several episodes of emesis after she received narcotics. They state there was a small amount of blood. She also states that she has had some chronic black stools and is supposed to follow up with GI to get a scope. Patient states this is her 2nd hip dislocation on the right side. She states last time she had to go to orthopedic surgery. Per EMS patient did drop her oxygen just prior to transfer. And was requiring 3 L. She does not normally require this. This was after she had received 12 mg total of morphine, Zofran as well as 12.5 mg of Phenergan. Related Data Home Medications Medication Instructions Recorded Confirmed acetaminophen [Tylenol] 650 mg PO Q4H PRN 04/07/18 04/26/19 levothyroxine 50 mcg PO DAILY 04/07/18 04/26/19 furosemide 20 mg PO DAILY 04/18/18 04/26/19 Allergies Allergy/AdvReac Type Severity Reaction Status Date / Time esomeprazole Allergy Intermediate Nausea Verified 04/25/19 23:28 Sulfa (Sulfonamide Allergy Mild Nausea Verified 04/25/19 23:28 Antibiotics) aspirin AdvReac Severe I blacked Verified 04/25/19 23:28 out milk AdvReac Severe GI Distress Verified 04/25/19 23:28 soybean AdvReac Severe GI Verified 04/25/19 23:28 Distress, diarrhea egg AdvReac Intermediate Occasional Verified 04/25/19 23:28 diarrhea codeine AdvReac Unknown Nausea Verified 04/25/19 23:28 metal Allergy Severe Rash any Uncoded 04/07/18 11:17 [facility] Medical History Postoperative anemia due to acute blood loss (Acute) Arthritis (Acute) Chronic neck and back pain (Acute) Crohn's disease (Acute) Depression (Acute) Edema extremities (Acute) History of pneumonia (Acute) Hx of bladder infections (Acute) Hypothyroidism (Acute) Insomnia (Acute) Migraines (Acute) Sinus drainage (Acute) Skin cancer (Acute) Surgical History H/O hysterectomy with unilateral oophorectomy (Acute) History of arthroplasty of left knee (Acute) History of arthroplasty of right knee (Acute) History of bilateral carpal tunnel release (Acute) History of total left hip arthroplasty (Acute) Hx of appendectomy (Acute) Hx of tonsillectomy (Acute) S/P laparotomy (Acute) Status post bilateral cataract extraction (Acute) Social History household members: family Smoking Status: Never smoker alcohol intake: former Social History household members: family Smoking Status: Never smoker alcohol intake: former Exam Narrative Exam Narrative: GENERAL: Alert and oriented x three, well-nourished, well- appearing female in mild distress. HEENT: Head normocephalic, atraumatic, EOMI, pupils reactive, face symmetric, moist mucous membranes NECK: Supple, full range of motion, nontender to palpation. CARDIOVASCULAR: Regular rate and rhythm without murmurs, rubs or gallops. RESPIRATORY: Breath sounds equal bilaterally, no wheezes rales or rhonchi. ABDOMEN: Soft, nontender. Normoactive bowel sounds all 4 quadrants. No guarding or rebound, rigidity, no mass : No CVA tenderness EXTREMITIES: Right lower extremity is shortened and internally rotated. Patient has 2+ pulse in the right lower extremity. She has sensation to light touch in can wiggle all of her toes., no clubbing or edema bilaterally, 2+ pulse on the left. NEUROLOGICAL: Cranial nerves II through XII grossly intact. Moving all extremities SKIN: Warm, dry, no petechiae, no rashes or lesions. Initial Vital Signs Initial Vital Signs: Vital Signs Temperature 98.7 F 04/25/19 23:22 Pulse Rate 61 04/25/19 23:22 Respiratory Rate 20 04/25/19 23:22 Blood Pressure 180/70 H 04/25/19 23:22 Pulse Oximetry 100 04/25/19 23:22 Course Orders Ordered: ED Orders 04/25/19 23:26 XR hip w pel if done RT 2V Stat 04/25/19 23:41 XR chest 1V Stat 04/25/19 23:53 Complete Blood Count AUTO DIFF Stat Comprehensive Metabolic Panel Stat Partial Thromboplastin Time Stat Prothrombin Time INR Stat Sodium Chloride (Normal Saline 0.9%) 1,000 mls @ 125 mls/hr IV CONT BHAVANA Morphine Sulfate (Morphine) 2 mg IV Q4HR PRN PRN Reason: Pain, Mild (1-3) Ondansetron HCl (Zofran) 4 mg IV Q4HR PRN PRN Reason: Nausea And Vomiting Sodium Chloride (Normal Saline 0.9% Flush) 10 ml IV PRN PRN PRN Reason: Flush Vital Signs - 8 hr 04/25/19 23:22 04/26/19 00:29 04/26/19 01:23 Temperature 98.7 F Pulse Rate 61 54 L 52 L Respiratory Rate 20 12 11 L Blood Pressure 180/70 H 150/57 H Blood Pressure [Left Arm] 138/55 L Pulse Oximetry 100 92 97 MDM - Extremity Injury (Lower) Lab Data Attestation: I reviewed the patient's lab results. Result diagrams: 04/25/19 23:53 04/25/19 23:53 Lab Results 04/25/19 04/25/19 04/25/19 Range/Units 23:53 23:53 23:53 WBC 7.9 (4.5-11.0) X10^3/uL RBC 4.45 (4.0-5.2) X10^6/uL Hgb 13.3 (12.0-16.0) g/dL Hct 39.4 (36-46) % MCV 88.6 (80-100) fL MCH 29.9 (26-34) PG MCHC 33.8 (30-36) % RDW 12.1 (11.6-14.8) % Plt Count 195 (150-400) X10^3/uL Neut % (Auto) 89.7 H (50-75) % Lymph % (Auto) 5.8 L (25-40) % [place] % (Auto) 4.0 (3-14) % Eos % (Auto) 0.2 L (2-4) % Baso % (Auto) 0.3 (0-2) % Neut # (Auto) 7100 H (6242-0148) /uL Lymph # (Auto) 500 L (6797-7020) /uL [place] # (Auto) 300 (0-900) /uL Eos # (Auto) 0 (0-450) /uL Baso # (Auto) 0 (0-100) /uL PT 10.9 (10.1-12.7) SECONDS INR 1.0 (0.9-1.3) APTT 30 (26.4-36.2) SECONDS Sodium 138 (137-145) mmol/L Potassium 4.1 (3.4-5.1) mmol/L Chloride 99 (98-107) mmol/L Carbon Dioxide 31 (22-32) mmol/L BUN 12 (7-17) mg/dL Creatinine 0.80 (0.52-1.04) mg/dL Estimated GFR > 60.0 (>60) mL/min BUN/Creatinine Ratio 15.0 (6-22) Glucose 113 H (80-110) mg/dL Calcium 9.4 (8.4-10.2) mg/dL Total Bilirubin 0.9 (0.2-1.3) mg/dL AST 35 (14-36) IU/L ALT 16 (9-52) IU/L Alkaline Phosphatase 81 (38-126) U/L Total Protein 8.2 (6.3-8.2) g/dL Albumin 4.4 (3.5-5.0) g/dL Globulin 3.8 (1.7-4.1) g/dL Albumin/Globulin Ratio 1.2 (1.0-2.8) Imaging Data Chest x-ray: My impression: nap, no pneumothorax, no infiltrate. right hip xray: My impression: right hip dislocation with prosthesis appearing intact. no fx noted. MDM Narrative Medical decision making narrative: Patient had complained of vomiting which she typically gets with narcotics. She per EMS had some him at emesis although very small amount. She states that she has been in the process of being worked up for potential GI issues. Lab work was obtained does not show any acute changes. She also had low oxygen just prior to transport via EMS, this is likely caused by the 12 mg of morphine she received but we did obtain a chest x-ray which was normal. Patient was 100% on room air on arrival. Pain is controlled. Discussed with patient repeated imaging which does show a right hip dislocation and no acute findings on her chest x-ray. Discussed with patient she would prefer that orthopedic surgery reduce her hip and prefers that I do not do it tonight. She is very polite during this discussion. We did discuss that Dr. Cherrie Swain may not be available to be her orthopedic surgeon tomorrow. She is aware of this and still prefers orthopedic surgery to be responsible for her reduction, she is aware that Dr. Swain will not be available for 24 hours. She is open to Dr. Floyd or one of the other orthopedic surgeons performing reduction. I spoke with Dr. Floyd who is on-call for Orthopedic surgery. He is aware of the patient from [place] as they contacted him 1st prior to contacting me here in the emergency department. He accepts patient under Dr. Swain name. Discharge Plan Departure Patient Disposition: Admitted As Inpatient Clinical Impression: Dislocation, hip Interventions: ED Discharge Assessment Last Done: 04/26/19 01:23 Admit Date/Time: 04/26/19 00:54 Admit Provider: Cherrie Swain
[2019-04-26] VITALS (18 sets, daily range): BP systolic 117–157; BP diastolic 47–89; PULSE 49–67; RESP 10–20; TEMP 36.6–37.8; O2SAT 92–100; BMI 24.7
--- NOTE | 2019-04-26 | DI.RAD.S_ITS ---
PROCEDURE: XR HIP RT 1V INDICATIONS: RE-LOCATION OF RIGHT HIP TECHNIQUE: One operative view of the hip acquired. COMPARISON: [facility], CR, XR HIP W PEL IF DONE RT 2V, 04/25/2019, 23:28. FINDINGS: Fluoroscopic imaging was required for reduction of a previously dislocated total right hip prosthesis. The visualized bony structures are intact. The bones are incompletely visualized. IMPRESSION: Fluoroscopy utilized for reduction of a dislocated total right hip Prosthesis. Dictated by: Jacky Dickson M.D. on 04/26/2019 at 18:30 Approved by: Jacky Dickson M.D. on 04/26/2019 at 18:32
[2019-04-26 00:07] LABS: Add Manual Diff / Slide Review NO; Basophils Absolute Auto 0 /uL (0-100); Basophils Percent Auto 0.3 % (0-2); Eosinophils Absolute Auto 0 /uL (0-450); Eosinophils Percent Auto 0.2 % (2-4); Hematocrit 39.4 % (36-46); Hemoglobin 13.3 g/dL (12.0-16.0); Lymphocytes Absolute Auto 500 /uL (1100-4500); Lymphocytes Percent Auto 5.8 % (25-40); Mean Corpuscular HGB Conc 33.8 % (30-36); Mean Corpuscular Hemoglobin 29.9 PG (26-34); Mean Corpuscular Volume 88.6 fL (80-100); Monocytes Absolute Auto 300 /uL (0-900); Neutrophils Absolute Auto 7100 /uL (1500-7000); Neutrophils Percent Auto 89.7 % (50-75); Platelet Count 195 X10^3/uL (150-400); Red Blood Cell Count 4.45 X10^6/uL (4.0-5.2); Red Cell Distribution Width 12.1 % (11.6-14.8); White Blood Cell Count 7.9 X10^3/uL (4.5-11.0)
[2019-04-26 00:12] LABS: Prothrombin Time 10.9 SECONDS (10.1-12.7)
[2019-04-26 00:15] LABS: PTT Partial Thromboplastin Tim 30 SECONDS (26.4-36.2)
[2019-04-26 00:16] LABS: Alanine Aminotransferase 16 IU/L (9-52); Albumin 4.4 g/dL (3.5-5.0); Albumin Globulin Ratio 1.2 (1.0-2.8); Alkaline Phosphatase 81 U/L (38-126); Aspartate Aminotransferase 35 IU/L (14-36); Bilirubin Total 0.9 mg/dL (0.2-1.3); Blood Urea Nitrogen 12 mg/dL (7-17); Calcium 9.4 mg/dL (8.4-10.2); Carbon Dioxide 31 mmol/L (22-32); Chloride 99 mmol/L (98-107); Estimated Glomerular Filt Rate > 60.0 mL/min (>60); Globulin 3.8 g/dL (1.7-4.1); Glucose 113 mg/dL (80-110); HEMOLYSIS < 15 (0-50); Potassium 4.1 mmol/L (3.4-5.1); Sodium 138 mmol/L (137-145); Total Protein 8.2 g/dL (6.3-8.2)
[2019-04-26] MEDS: MORPHINE 2 MG/ML INJ IV ×3 (01:56→13:50)
[2019-04-26] MEDS: SODIUM CHLORIDE 0.9% FLUSH 10 ML IV (01:57)
[2019-04-26] MEDS: SODIUM CHLORIDE 0.9% 1,000 ML 125 ML IV ×2 (02:00→09:42)
--- NOTE | 2019-04-26 02:55 | PC.ADMIT ---
Addendum entered by Tabitha Bennett R.N. 04/26/19 06:31: Catheter inserted with return of clear yellow urine. Patient tolerated fair related to pain due to right hip dislocation. Complaining of nausea/sour stomach so medicated with Zofran. Addendum entered by Tabitha Bennett R.N. 04/26/19 06:02: Still unable to void and has 652cc on bladder scan. Dr Floyd informed and order received to insert indwelling catheter. Patient complains now of 7/10 pain so medicated with Morphine. Original Note: Patient admitted to room 216 from ER per stretcher and transferred into bed using slider board. Patient initially very anxious as kept complaining that leg was in wrong position despite multiple attempts to reposition. After receiving IV Morphine patient became less anxious. Initially pain was 10/10 and now states is 8/10. Is alert and oriented. Breath sounds are CTA with RA sat of 100%. HRR with ICU report of SB on her telemetry. BP 157/89. Denies nausea. BT present and abdomen is soft. States she has some post void dribbling but denies dysuria, frequency or urgency. Has not voided since arrival in ER; assisted onto bedpan but unable to urinate and bladder scan showing 449cc but patient wants to wait and try again later rather than having MD contacted re: catheter at this time stating she generally retains some urine. Right leg is internally rotated. No bruising noted. CMS is intact. Fall risk score is moderate; bed alarm is activated due to recent fall. [address] Admission Note: The patient,Maricarmen Barton,78 y/o, was given written information regarding hospital policies, unit procedures and contact persons. Patient's smoking status: Never smoker. Vital Signs - 8 hr 04/25/19 23:22 04/26/19 00:29 04/26/19 01:23 Temperature 98.7 F Pulse Rate 61 54 L 52 L Respiratory Rate 20 12 11 L Blood Pressure 180/70 H 150/57 H Blood Pressure [Left Arm] 138/55 L Pulse Oximetry 100 92 97 04/26/19 01:45 Temperature 98.2 F Pulse Rate 67 Respiratory Rate 20 Blood Pressure 157/89 H Blood Pressure [Left Arm] Pulse Oximetry 100
[2019-04-26] MEDS: ONDANSETRON 4 MG/2 ML INJ IV (06:27)
--- NOTE | 2019-04-26 10:46 | PC.NURSE ---
Addendum entered by Anisha Hogan R.N. 04/26/19 15:35: Pt's earrings and watch (white and gold colored) placed into specimen container and placed into pt's black purse in pt's room closet per her request. Aware of unit safe for personal belongings if needed by pt. Original Note: Day Shift- Spoke with ESTEFANY Parra this AM around 0800. Pt has symptoms of acid reflux, burping. Pt states she usually takes a OTC med at home, does not remember which one. New order rec'd for Protonix 40mg IV Daily. Also made aware to f/u regarding plan for reduction on unit or in OR. Van to clarify. Dr. Floyd called at 0825, states do not given Protonix at this time, wait for now and pt is in bed resting with eyes closed. Update on pt status given to Isela Floyd who will call back to unit with an updated plan for today. Pt's right leg is internally rotated, PPP, good warmth. Pt remains NPO, IVF infusing well to left hand PIV. Denies nausea. Cervantes insitu draining clear yellow urine.
--- NOTE | 2019-04-26 13:28 | CM.DANOTE ---
DCP/Assessment: Reviewed chart. Patient is a 78yr old female admitted to . with right hip dislocation. PCP is Dr. Chambers in [place]. Primary payor is 1)Medicare 2)[facility]. Met with patient explained CM team role. Patient admitted to .. today. Patient reports that she initially had right hip replacement in May 2018. Patient recently has had 2 dislocations. Patient currently NPO, scheduled for surgery later today with Dr. Swain. Patient resides alone and reports that she is primarily I in ADL's. Patient does have walker at home to use after surgery. Patient anticipates that she will return home. Patient has friends/family nearby that she hopes can assist. Notified patient that CM team will follow up after surgery. Therapy expected to see tomorrow 04-27-19. Patient appreciative. P: Pending. REYMUNDO Landrum Discharge Planning/Care Management CM Discharge Assessment Start: 04/26/19 13:25 Freq: Status: Active Protocol: Document 04/26/19 13:25 KJS (Rec: 04/26/19 13:28 KJS [id number]) Discharge Planning Assessment Assigned Frame And Scrap Crusher REYMUNDO Landrum Contact Information Pepe Rosarion (son) [phone] Advance Directives? Yes: Health Care Directive Advance Directives on File Yes History Provided By Patient Medical Record Prior Living Arrangements House Household Members none Type of transporation used prior to Drives own vehicle admit Independent with ADL's Yes Is patient alert and oriented? Yes Caregiver for Another No DME Already Rented / Owned FWW / Walker Barriers to Discharge No Comment Surgery scheduled today with Dr. Swain. Discharge Plan Home Transportation Arrangement Son Additional Comment Pending needs Whiteboard Updated in Patient Room with Yes name and ext. # of Frame And Scrap Crusher Review Status In Process Next Review Type Continued Stay Review
--- NOTE | 2019-04-26 16:29 | SUR.OPER ---
Supine on padded OR bed, head on pillow, arms secured on padded arm boards at <90 degrees abduction, legs uncrossed, safety belt at thigh, tape over blanket over lower legs.
[2019-04-26] MEDS: LACTATED RINGERS 1,000 ML 42 ML IV (16:53)
--- NOTE | 2019-04-26 16:58 | PM.PREOP ---
Pre-operative Note Interval Note History & Physical reviewed/Exam performed by Physician: Yes Changes to H&P: No
--- NOTE | 2019-04-26 16:58 | PM.HP.1 ---
History of Present Illness Date Patient Seen: 04/26/19 Time Patient Seen: 16:59 Chief complaint: Dislocated Hip Narrative: 78 yo F with recurrent right hip dislocation. She bent down yesterday and dislocated. Presented to [facility] ED and was transferred to ED. Pt did not want ED physician for reduction and she was scheduled for right KRISTEN reduction under anesthesia today. Patient History Medical History Postoperative anemia due to acute blood loss (Acute) Arthritis (Acute) Chronic neck and back pain (Acute) Crohn's disease (Acute) Depression (Acute) Edema extremities (Acute) History of pneumonia (Acute) Hx of bladder infections (Acute) Hypothyroidism (Acute) Insomnia (Acute) Migraines (Acute) Sinus drainage (Acute) Skin cancer (Acute) Surgical History H/O hysterectomy with unilateral oophorectomy (Acute) History of arthroplasty of left knee (Acute) History of arthroplasty of right knee (Acute) History of bilateral carpal tunnel release (Acute) History of total left hip arthroplasty (Acute) Hx of appendectomy (Acute) Hx of tonsillectomy (Acute) S/P laparotomy (Acute) Status post bilateral cataract extraction (Acute) Social History household members: family Smoking Status: Never smoker alcohol intake: former Family & Social History Social History: household members none Prior Living Arrangements House Safety & Behavioral: Feels Safe in Current Yes Environment Been Physically Hurt or No Threatened By a Person Suicidal Ideation Description None Tobacco & Substance use: Smoking Status Never smoker alcohol intake former alcohol intake frequency holiday/special occasion Substance Use Type does not use Meds Home Medications Medication Instructions Recorded Confirmed Type acetaminophen [Tylenol] 650 mg PO Q4H PRN 04/07/18 04/26/19 History levothyroxine 50 mcg PO DAILY 04/07/18 04/26/19 History furosemide 20 mg PO DAILY 04/18/18 04/26/19 History Allergies Allergy/AdvReac Type Severity Reaction Status Date / Time esomeprazole Allergy Intermediate Nausea Verified 04/26/19 16:53 Sulfa (Sulfonamide Allergy Mild Nausea Verified 04/26/19 16:53 Antibiotics) aspirin AdvReac Severe I blacked Verified 04/26/19 16:53 out milk AdvReac Severe GI Distress Verified 04/26/19 16:53 soybean AdvReac Severe GI Verified 04/26/19 16:53 Distress, diarrhea egg AdvReac Intermediate Occasional Verified 04/26/19 16:53 diarrhea codeine AdvReac Unknown Nausea Verified 04/26/19 16:53 metal Allergy Severe Rash any Uncoded 04/07/18 11:17 cheap jewlery Exam Vital Signs (past 8 hours): - 04/26/19 11:10 04/26/19 13:50 04/26/19 15:28 Temperature 98.7 F 98.2 F Pulse Rate 49 L 51 L 50 L Respiratory Rate 14 15 Blood Pressure 123/60 118/51 L Pulse Oximetry 96 95 97 04/26/19 16:49 Temperature 98.5 F Pulse Rate 53 L Respiratory Rate 15 Blood Pressure 131/59 L Pulse Oximetry 97 Oxygen Delivery Method Room Air Oxygen Flow Rate 0 Objective Labs Result Diagrams: 04/25/19 23:53 04/25/19 23:53 Labs: Laboratory Results - last 24 hr 04/25/19 04/25/19 04/25/19 23:53 23:53 23:53 WBC 7.9 RBC 4.45 Hgb 13.3 Hct 39.4 MCV 88.6 MCH 29.9 MCHC 33.8 RDW 12.1 Plt Count 195 Neut % (Auto) 89.7 H Lymph % (Auto) 5.8 L [place] % (Auto) 4.0 Eos % (Auto) 0.2 L Baso % (Auto) 0.3 Neut # (Auto) 7100 H Lymph # (Auto) 500 L [place] # (Auto) 300 Eos # (Auto) 0 Baso # (Auto) 0 PT 10.9 INR 1.0 APTT 30 Sodium 138 Potassium 4.1 Chloride 99 Carbon Dioxide 31 BUN 12 Creatinine 0.80 Estimated GFR > 60.0 BUN/Creatinine Ratio 15.0 Glucose 113 H Calcium 9.4 Total Bilirubin 0.9 AST 35 ALT 16 Alkaline Phosphatase 81 Total Protein 8.2 Albumin 4.4 Globulin 3.8 Albumin/Globulin Ratio 1.2 Assessment & Plan Assessment & Plan narrative: Right hip recurrent dislocation. Patient was consented for close reduction. If hip cannot be close reduced will defer to Dr. Swain for open reduction. Time Spent With Patient Time with patient: less than 15 minutes Quality VTE Deep Vein Thrombosis/Pulmonary Embolism Present on Admission: No
--- NOTE | 2019-04-26 17:12 | PM.OP.1 ---
Operative Date/Time/Diagnoses Date of procedure: 04/26/19 Time of procedure: 17:12 Pre-op diagnosis: right total hip arthroplasty dislocation Post-op diagnosis: same Procedure & Clinicians Procedure: Right hip close reduction under anesthesia Same procedure as scheduled: Yes Indications: Ms. Barton has recurrent dislocation to her right hip. She re-dislocated at home while doing yard work. She was admitted through emergency room and scheduled for close reduction under anesthesia. Surgeon: Dov Floyd Anesthesia Type: General Operative Notes Closure Type: primary Specimen(s): none sent Estimated Blood Loss (mL): 0 Blood products transfused: none Procedure in detail: Patient was identified in the preoperative area. Informed consent was obtained and placed in the chart. The affected leg was marked. Patient was taken to the operative room. General anesthesia was given to the patient patient was transferred to the operating table under sedation. Patient's affected hip was flexed internally rotated and was then put in traction. While in traction the hip was slowly extended external rotated. A clunk was felt during this maneuver. X-ray was used to confirm the hip was reduced in the desired position. Patient tolerated the procedure well I was placed into abduction pillow. Patient was then transferred recovery room stable condition. Complications: none Condition: stable Disposition: PACU Plan for aftercare: Admit for over night observation.
--- NOTE | 2019-04-26 18:01 | SUR.PHASEI ---
Pt bypassed pacu due to having only received a min amt of propofol in order reduce her Right hip. VSS, continuous pulse ox. Pt was awake, denied px and tolerated hydration w/o incident. Pt was taken back to room 216 in stable condition.
--- NOTE | 2019-04-26 18:07 | PC.NURSE ---
Priti shift: Received patient awake, alert, and pleasant from PACU with Chimoa LUONG. VSS and on RA, sats 98%. No c/o pain or nausea. Call light within reach.
[2019-04-26] MEDS: LACTATED RINGERS 1,000 ML 125 ML IV (18:30)
[2019-04-26] MEDS: ACETAMINOPHEN 325 MG TABLET 975 MG PO (20:07)
[2019-04-26] MEDS: MAGNESIUM HYDROXIDE 30 ML UDC PO (20:07)
[2019-04-26] MEDS: HYDROCODONE/ACET 5/325 TABLET 1 TAB PO (22:07)
--- NOTE | 2019-04-27 01:22 | PC.NURSE ---
Addendum entered by Tabitha Bennett R.N. 04/27/19 06:55: States feet still uncomfortable but declines offer of pain meds stating I don't like to take too much. Informed she will be getting Tylenol this morning but if she needs something stronger before that she needs to let staff know; verbalizes understanding. Original Note: At shift change patient continually complaining of pain in bilateral feet with 9/10 severity but had recently had Vicodin. Had strong pedal pulses and denied tingling/numbness. Did note trace bilateral foot/ankle edema. Currently states pain improved and now rates severity as 3/10. Is alert and oriented although very [place]; has right hearing aid but it is out for the night. Insisting she came in with bilateral PUENTES but when admitted last night only came up from ER with right hearing aid. Breath sounds CTA with RA sat of 99%. HRR with earlier rate of 53 and currently at 61 bpm. Denies nausea. BT hypoactive; denies flatus. Indwelling catheter is patent with clear delaney urine. Abductor immobilizer between legs. Denies any hip pain. Refusing SCD's. Needing assist to reposition so are using the Christiane tilt bed function to alter position. Current activity level ordered is still bedrest. Fall risk score is moderate and bed alarm is activated.
[2019-04-27] MEDS: LACTATED RINGERS 1,000 ML 125 ML IV (03:06)
[2019-04-27] MEDS: HYDROCODONE/ACET 5/325 TABLET 1 TAB PO (03:08)
[2019-04-27 05:00] VITALS: BP 122/53; PULSE 51; RESP 17; TEMP 36.7; O2SAT 98
[2019-04-27] MEDS: LEVOTHYROXINE 50 MCG TABLET PO (05:42)
[2019-04-27 07:45] VITALS: BP 121/63; PULSE 54; RESP 14; TEMP 36.8; O2SAT 99
[2019-04-27] MEDS: FUROSEMIDE 20 MG TABLET PO (08:37)
[2019-04-27] MEDS: ACETAMINOPHEN 325 MG TABLET 975 MG PO ×3 (08:37→20:37)
--- NOTE | 2019-04-27 08:42 | PM.PNPO.1 ---
Subjective Date Patient Seen: 04/27/19 Time Patient Seen: 08:42 Interval history: Postop day 1 status post right hip reduction. She is doing well this morning. She has not been up with physical therapy. Her pain is well controlled. She lives alone, her neighbor checks in on her frequently. She has a walker at home. She has been refusing her SCDs. We discussed the importance of wearing these while she is lying in bed. She is allergic to aspirin. Patient does have some confusion about what her posterior hip precautions are. Exam Vital Signs (past 8 hours): - 04/27/19 05:00 04/27/19 07:45 Temperature 98.0 F 98.2 F Pulse Rate 51 L 54 L Respiratory Rate 17 14 Blood Pressure 122/53 L 121/63 Pulse Oximetry 98 99 Oxygen Delivery Method Room Air Oxygen Flow Rate 0 Narrative Exam Narrative: Patient is sitting up in bed in no acute distress. She is alert and oriented x3. Calves are soft, compressible, nontender bilaterally. Sensation intact to light touch throughout bilateral lower extremities. She is able to actively dorsiflex and plantar flex. Objective Labs Result Diagrams: 04/25/19 23:53 04/25/19 23:53 Assessment & Plan Post-op Postoperative Procedures Operation Date: 04/26/19 16:00 Actual Procedures Side Surgeon p Closed Reduction Dislocated Hip Right Dov Floyd MD Patient will work with physical therapy today. Patient was reminded of posterior hip precautions, and will be weight-bearing as tolerated. Continue current pain control. If she is ambulating safely with physical therapy today she will be able to go home. Quality VTE Deep Vein Thrombosis/Pulmonary Embolism Present on Admission: No
--- NOTE | 2019-04-27 10:12 | OT.IP.EVAL ---
Current Diagnoses Dislocation of internal right hip prosthesis, initial encounter (04/26/19) Surgery Performed Operation Date: 04/26/19 16:00 Actual Procedures p Closed Reduction Dislocated Hip(Right) - Dov Floyd MD Past Medical History (Last Reviewed 04/25/19 @ 23:40 by Kristen Duron DO) Postoperative anemia due to acute blood loss (Acute) Arthritis (Acute) Chronic neck and back pain (Acute) Crohn's disease (Acute) Depression (Acute) Edema extremities (Acute) History of pneumonia (Acute) Hx of bladder infections (Acute) Hypothyroidism (Acute) Insomnia (Acute) Migraines (Acute) Sinus drainage (Acute) Skin cancer (Acute) Surgical History (Last Reviewed 04/25/19 @ 23:40 by Kristen Duron DO) H/O hysterectomy with unilateral oophorectomy (Acute) History of arthroplasty of left knee (Acute) History of arthroplasty of right knee (Acute) History of bilateral carpal tunnel release (Acute) History of total left hip arthroplasty (Acute) Hx of appendectomy (Acute) Hx of tonsillectomy (Acute) S/P laparotomy (Acute) Status post bilateral cataract extraction (Acute) Occupational Therapy Inpatient Evaluation/Re-Eval M1 PT/OT-IP Prior Functional Status Start: 04/27/19 12:49 Freq: NEEDED Status: Active Protocol: Document 04/27/19 10:30 AB (Rec: 04/27/19 12:57 AB [id number]) Medical Review Prior Functional Status Medical History Reviewed Yes Communication WNL Mobility and Gait pt states that she is modified independent with all mobilities and ambulation without AD but occasionally uses a SPC Social History Household Members none Living Arrangements House Number of Floors (Floors) One Floor Number of Stairs To Enter/Railing? 1 step to the porch +1 step to enter the house Home Environment High Toilet Walk in Shower Home Equipment Front Wheel Walker Straight Cane Hand Held Shower Grab Bars In Shower Employment Status Retired M2 OT-IP Current Condition Start: 04/27/19 16:58 Freq: Status: Active Protocol: Document 04/27/19 10:12 PJM (Rec: 04/27/19 17:21 PJM [id number]) Occupational Therapy Current Condition Current Condition Evaluation Date 04/27/19 Treatment Diagnosis decr'd self care, functional mobility due to R hip dislocation (2nd time) Diagnosis Onset Date 04/26/19 Post Operative Precautions Posterior Hip Precautions No Hip Flexion > 90 degrees No Hip Internal Rotation No Hip Adduction Weight Bearing Status Weight Bearing Status Weight Bear as Tolerated M3 OT- IP Subjective and Pain Start: 04/27/19 16:58 Freq: Status: Active Protocol: Document 04/27/19 10:12 PJM (Rec: 04/27/19 17:21 PJM [email or web address]) OT- Subjective Occupational Therapy Visit Type Type Initial Evaluation Visit Start Time 09:40 Visit Stop Time 10:12 Total Visit Minutes 32 Occupational Therapy Visit Comments Patient Comments I am trying to get my son up to help me this weekend, and then I hope my sister can come up from [place] to stay with me. Patient/Caregiver Goals to go home OT Pain Assessment Pain When Pain Assessed After Treatment Pain Present Pain Present Pain Reported Location Bilateral Foot Intensity 6 Scale Used Numeric (1 - 10) Description Aching Acute Pain Behaviors Facial Grimacing Management Techniques Distraction Timing of Activity with Medications M4 OT- IP ADL's Start: 04/27/19 16:58 Freq: Status: Active Protocol: Document 04/27/19 10:12 PJM (Rec: 04/27/19 17:21 PJM [id number]) OT [id number] General Evaluation Self-Feeding Ability Independent OT ADL-Grooming General Evaluation Grooming Ability Standby Assistance Areas Needing Assistance Combing/Brushing Hair Face Washing Comments OT Grooming Comments after set up in bed OT ADL-Oral Care Comments Oral Care Comments did not occur this session OT ADL-Dressing Assistive Devices Dressing Assistive Devices Safety Equipment Testing Specialist Comments OT Dressing Comments Began education with pt re: use of hockey player, sock aid and long shoe horn for lower body dressing. Pt needs repetition of some information and will need to practice prior to d/c. Pt needs verbal cues to problem solve how posterior hip precautions will apply to every day tasks. OT ADL-Toileting General Evaluation Toileting Ability Total Assistance Comments OT Toileting Comments pt still has cisse in place OT ADL-Bathing Comments OT Bathing Comments to be assessed M5 OT- IP IADL's Start: 04/27/19 16:58 Freq: Status: Active Protocol: Document 04/27/19 10:12 PJM (Rec: 04/27/19 17:21 PJM [id number]) OT-Instrumental Activities of Daily Living Deficits IADL Deficits Identified Deficits Home Safety Awareness Awareness of Need for Assistance at Home Good Awareness Medication Management Medication Management Comments pt appears to have some short term memory deficits but states she manages her own medications Money Management Money Management Comments pt appears to have some short term memory deficits but states she manages her own finances Meal Preparation Meal Preparation Comments pt may need some assist with meal prep until endurance and foot pain improves Skidder Loader Skidder Loader Comments pt will need assist until endurance and mobility improve Driving Driving Comments pt will need assist with driving; pt states her neighbor will pick her up from hospital M6 OT- IP Functional Cognition Start: 04/27/19 16:58 Freq: Status: Active Protocol: Document 04/27/19 10:12 PJM (Rec: 04/27/19 17:21 PJM [id number]) Cognitive Factors Limiting Selfcare Function Cognitive Ability Level of Alertness Alert Attention Span Ability Capable of Focused Attention Capable of Sustained Attention Ability to Follow Commands Able to Follow One Step Commands Memory Description Short Term Impaired Safety Awareness Decreased Recall of Precautions Decreased Ability to Apply Precautions Underestimates Need for Assistance Problem Solving Ability Unable to Identify Errors Needs Assist to Identify Solutions Executive Function Ability Unable to Remember Details Cognitive Comments Cognitive Assessment Comments Pt having difficulty with recall and application of hip precautions. Pt needs repetition of information. OT- Vision and Hearing OT- Hearing Assessment OT- Hearing Assessment WFL OT- Vision Assessment Visual Acuity WFL M7 OT- IP Mobility and Balance Start: 04/27/19 16:58 Freq: Status: Active Protocol: Document 04/27/19 10:12 PJM (Rec: 04/27/19 17:21 PJM [email or web address]) OT-Transfer Assessment Comments Mobility Comments see P.T. notes; pt c/o B foot pain in bed OT- Gait Assessment Comments Gait Ability Comments see P.T. notes OT- Balance Assessment Comments Other Balance Tests/Deviations/Treatment see P.T. notes : M8 OT- IP Objective Assessments Start: 04/27/19 16:58 Freq: Status: Active Protocol: Document 04/27/19 10:12 PJM (Rec: 04/27/19 17:21 PJ [id number]) OT Gross Range of Motion Upper Extremity Range of Motion Assessment Within Functional Limits ROM Impairments except pt c/o R shoulder pain at end range scaption to about 130 degrees due to recent fall in garden and old injuries OT Strength Upper Extremity Strength Assessment Within Functional Limits Hand Slide Forming Machine Operator Strength Hand Dominance Right OT- Coordination Assessment Comments Coordination Comments BUE WFL OT-Muscle Tone Assessment Muscle Tone WNL Yes OT Sensation Assessment Comments Summary Comments Pt denies deficits in BUE's. M9 OT- IP Assessment and Plan Start: 04/27/19 16:58 Freq: Status: Active Protocol: Document 04/27/19 10:12 PJM (Rec: 04/27/19 17:21 PJM [email or web address]) OT Summary Assessment and Plan Potential Rehabilitation Potential Good Analytic Complexity at Evaluation Low Summary OT Impairments Pain Functional Cognition Functional Mobility Grooming Dressing Toileting Bathing Toilet Transfers Shower Transfers Assessment Summary Low complexity OT assessment completed on this 78 yr old pt admitted after her second R hip dislocation after fall in her garden at home. Pt has difficulty recalling her posterior hip precautions and problem solving how they would apply to ADL's. Short term memory deficits noted in conversation. ] Pt currently has performance deficits in all functional mobility/transfers. She is c/o B foot pain in bed with edema noted and has not yet been up with P.T. Pt also has decreased independence in standing grooming, lower body dressing, bathing and toileting. Pt currently needs 24 supervision for safety. Further d/c recommendations to follow pending progress tomorrow. Goals Grooming Goal Standby Assistance Dressing Goal Standby Assistance Toileting Goal Independent Bathing Goal Standby Assistance Toilet Transfer Goal Standby Assistance Shower Transfer Goal Standby Assistance Patient/Caregiver Education Goal Demonstrate Post-Op Precautions Demonstrate Energy Conservation and Pacing Caregiver Independent Assisting Patient OT-Other Goals Grooming to be done standing at sink with good safety awareness Days to Meet Goals 2 Frequency of Treatment Frequency Of Treatment Twice a Day Treatment Plan OT Treatment Plan ADL Training Functional Cognition Training Functional Mobility Patient/Family Education Discharge Planning Discharge Recommendations Other Discharge Recommendations Pt currently needs 24 hr assist due to memory deficits. Further recommendations to follow pending progress tomorrow. Pt currently trying to contact family to come to assist her after d/c.
--- NOTE | 2019-04-27 10:30 | PT.IIE ---
Current Diagnoses Dislocation of internal right hip prosthesis, initial encounter (04/26/19) Surgery Performed Operation Date: 04/26/19 16:00 Actual Procedures p Closed Reduction Dislocated Hip(Right) - Dov Floyd MD Surgical History (Last Reviewed 04/25/19 @ 23:40 by Kristen Duron DO) H/O hysterectomy with unilateral oophorectomy (Acute) History of arthroplasty of left knee (Acute) History of arthroplasty of right knee (Acute) History of bilateral carpal tunnel release (Acute) History of total left hip arthroplasty (Acute) Hx of appendectomy (Acute) Hx of tonsillectomy (Acute) S/P laparotomy (Acute) Status post bilateral cataract extraction (Acute) Medical History (Last Reviewed 04/25/19 @ 23:40 by Kristen Duron DO) Postoperative anemia due to acute blood loss (Acute) Arthritis (Acute) Chronic neck and back pain (Acute) Crohn's disease (Acute) Depression (Acute) Edema extremities (Acute) History of pneumonia (Acute) Hx of bladder infections (Acute) Hypothyroidism (Acute) Insomnia (Acute) Migraines (Acute) Sinus drainage (Acute) Skin cancer (Acute) Physical Therapy Inpatient Evaluation/Re-Eval M1 PT/OT-IP Prior Functional Status Start: 04/27/19 12:49 Freq: NEEDED Status: Active Protocol: Document 04/27/19 10:30 AB (Rec: 04/27/19 12:57 AB [id number]) Medical Review Prior Functional Status Medical History Reviewed Yes Communication able to make needs known Mobility and Gait pt stated that she is modified independent with all mobilities and ambulation without AD but occasionally uses a SPC Social History Household Members none Living Arrangements House Number of Floors (Floors) One Floor Number of Stairs To Enter/Railing? 1 step to the porch +1 step to enter the house Home Environment High Toilet Walk in Shower Home Equipment Front Wheel Walker Straight Cane Hand Held Shower Grab Bars In Shower Employment Status Retired M2 PT-IP Current Condition Start: 04/27/19 12:49 Freq: NEEDED Status: Active Protocol: Document 04/27/19 10:30 AB (Rec: 04/27/19 12:57 AB [id number]) Physical Therapy Current Condition Current Condition Evaluation Date 04/27/19 Treatment Diagnosis R KRISTEN dislocation s/p reduction; difficulty in walking Onset Date 04/26/19 Precautions Posterior Hip Precautions No Hip Flexion > 90 degrees No Hip Internal Rotation No Hip Adduction Weight Bearing Status Weight Bearing Status Weight Bear as Tolerated M3 PT-IP Subjective Start: 04/27/19 12:49 Freq: NEEDED Status: Active Protocol: Document 04/27/19 10:30 AB (Rec: 04/27/19 12:57 AB [id number]) Subjective Physical Therapy Visit Type Type Initial Evaluation Visit Start Time 10:30 Visit Stop Time 10:59 Total Visit Minutes 39 Number of REAL ESTATE AGENT/BROKER Visits 0 Physical Therapy Visit Comments Patient Comments pt agreeable to do PT Therapy Pain Assessment Pain When Pain Assessed At Rest Pain Present Pain Present Pain Reported Location Bilateral Foot Intensity 9 Scale Used increases with movement and weight bearing Pain Management Techniques Timing of Activity with Medications M4 PT-IP Mobility and Gait Start: 04/27/19 12:49 Freq: NEEDED Status: Active Protocol: Document 04/27/19 10:30 AB (Rec: 04/27/19 12:57 AB [id number]) PT-Bed Mobility Assessment Supine to Sit Supine to Sit Standby Assistance Scooting Scooting to Edge of Bed Standby Assistance PT-Transfer Assessment Sit to and From Stand Sit to and from Stand Maximum Assistance 1 Person Assistance Use of Upper Extremities Equipment Transfer Assistive Device Gait Belt Front Wheeled Walker Orthotic/Prosthetic Devices or Brace: No Transfers Transfer Destination Chair Transfer Technique Stand Step Pivot Transfer Ability Level of Assist Maximum Assistance 1 Person Assistance Use of Upper Extremities Comments Mobility Comments pt completed sit to stand from the EOB with cues to maintain R hip posterior precautions requiring max A. pt attempted to walk but was only able to take ~ 3 steps and has to sit down due to pain. positioned chair next to pt and pt completed stand step transfer using FWW max A and max cues. Gait Assessment Gait Gait Assistance Required: Maximum Assistance Distance (Feet) 2 Able to Maintain Weight Bearing Status Yes During Gait Assistive Devices Assistive Device Gait Belt Front Wheeled Walker Orthotic/Prosthetic Devices or Brace: No Gait Deviations General Gait Pattern Antalgic Decreased Stride Length Decreased Feet Clearance Step-to Gait Factors Limiting Gait Function Factors Limiting Gait Function Decreased Activity Tolerance Decreased Sensation Decreased Strength Difficulty Following Directions Limited Range of Motion Pain Poor Balance Poor Safety Awareness PT-Balance Assessment Sitting Balance and Reactions Static Sitting Balance Ability Good Dynamic Sitting Balance Ability Good Standing Balance and Reactions Static Standing Balance Ability Fair Dynamic Standing Balance Ability Poor Device Used FWW M5 PT-IP Objective Assessments Start: 04/27/19 12:49 Freq: NEEDED Status: Active Protocol: Document 04/27/19 10:30 AB (Rec: 04/27/19 12:57 AB [id number]) Orientation Orientation/Cognition Level of Alertness Alert Orientation Name Place Situation Language Function Ability Hard of Hearing Memory Description Short Term Impaired Minute Clerk Impaired Strength Lower Extremity Strength Assessment Bilaterally Impaired Comments Strength Comments BLE 3+/5 Coordination Assessment Gross Coordination Gross Coordination WNL Sensation Assessment Sensation Gross Sensation WNL Muscle Tone Muscle Tone WNL Yes M6 PT-IP Treatment Start: 04/27/19 12:49 Freq: NEEDED Status: Active Protocol: Document 04/27/19 10:30 AB (Rec: 04/27/19 12:57 AB [id number]) Physical Therapy Treatment Education Education Provided Precautions Weight Bearing Status Safety M7 PT-IP Assessment and Plan Start: 04/27/19 12:49 Freq: NEEDED Status: Active Protocol: Document 04/27/19 10:30 AB (Rec: 04/27/19 12:57 AB [id number]) PT Summary Assessment and Plan Potential Rehabilitation Potential Fair Status of Condition at Evaluation Evolving Summary Impairments Pain ROM Strength Balance Coordination Sensation Tone Cognition Bed Mobility Transfers Gait Activity Tolerance Assessment Summary pt requiring max A with mobility and unable to ambulate far due to c/o bilateral feet main which increases with weight bearing. will continue to monitor progress. Pt lives alone and will require assist when pt goes home. Goals Bed Mobility Goal Independent Transfer Goal Independent Front Wheeled Walker Gait Goal Independent Front Wheel Walker Gait Distance 150 Other Goals up/down 1 step using FWW SBA Days to Meet Goals 5 Frequency of Treatment Frequency Of Treatment Twice a Day Treatment Plan Physical Therapy Treatment Plan Bed Mobility Training Transfer Training Gait Training Therapeutic Exercise Balance Retraining Post Op Education Discharge Planning Hot or Cold Pack Neuromuscular Re-ed Coordination Retraining Manual Therapy Recommendations To Nursing Amount of Assist Needed 1 Person Assist Discharge Recommendations PT Discharge Recommendations Home with 24/7 Assist Home Health SNF Rehab Other Discharge Recommendations depending on progress: SNF vs home with 24/7/homehealth PT
[2019-04-27 11:18] VITALS: BP 114/52; PULSE 53; RESP 16; TEMP 36.9; O2SAT 99
--- NOTE | 2019-04-27 12:56 | PC.NURSE ---
Patient sitting up in chair after working with P.T. O.T. Reported to me that patient had been having severe foot pain increased when attempting to mobilize. Patient had denied this while at rest earlier, but now states that she is having pain in her both her feet, worse when she walked to the bathroom, reports I did not have this pain before I came in here. Declines pain medications at this time, warm blanket given as requested. Per Tresa Figueredo will be coming in this afternoon to check on patient and will follow up with her. Patient was able to void without difficulty post cisse removal. Call light within reach, continue to monitor.
--- NOTE | 2019-04-27 15:40 | PT.IPTN ---
Current Diagnoses Dislocation of internal right hip prosthesis, initial encounter (04/26/19) Surgery Performed Operation Date: 04/26/19 16:00 Actual Procedures p Closed Reduction Dislocated Hip(Right) - Dov Floyd MD Physical Therapy Treatment Note M2 PT-IP Current Condition Start: 04/27/19 12:49 Freq: NEEDED Status: Active Protocol: Document 04/27/19 10:30 AB (Rec: 04/27/19 12:57 AB [id number]) Physical Therapy Current Condition Current Condition Evaluation Date 04/27/19 Treatment Diagnosis R KRISTEN dislocation s/p reduction; difficulty in walking Onset Date 04/26/19 Precautions Posterior Hip Precautions No Hip Flexion > 90 degrees No Hip Internal Rotation No Hip Adduction Weight Bearing Status Weight Bearing Status Weight Bear as Tolerated M3 PT-IP Subjective Start: 04/27/19 12:49 Freq: NEEDED Status: Active Protocol: Document 04/27/19 15:40 GGD (Rec: 04/27/19 16:44 GGD [email or web address]) Subjective Physical Therapy Visit Type Type Treatment Note Visit Start Time 15:10 Visit Stop Time 15:40 Total Visit Minutes 30 Number of EQUINE BREEDER Visits 1 Physical Therapy Visit Comments Patient Comments Pt states her feet hurt to move. Therapy Pain Assessment Pain When Pain Assessed At Rest Pain Present Pain Present Pain Reported Location Bilateral Foot Intensity 9 Scale Used increases with movement and weight bearing Pain Management Techniques Timing of Activity with Medications M4 PT-IP Mobility and Gait Start: 04/27/19 12:49 Freq: NEEDED Status: Active Protocol: Document 04/27/19 15:40 GGD (Rec: 04/27/19 16:44 GGD [id number]) PT-Bed Mobility Assessment Supine to Sit Supine to Sit Standby Assistance Sit to Supine Sit to Supine Standby Assistance Scooting Scooting to Edge of Bed Standby Assistance PT-Transfer Assessment Sit to and From Stand Sit to and from Stand Minimal Assistance 1 Person Assistance Use of Upper Extremities Equipment Transfer Assistive Device Gait Belt Front Wheeled Walker Orthotic/Prosthetic Devices or Brace: No Transfers Transfer Destination Bed Toilet Transfer Ability Level of Assist Contact Guard Assistance 1 Person Assistance Use of Upper Extremities Gait Assessment Gait Gait Assistance Required: Contact Guard Assist Distance (Feet) 30 Able to Maintain Weight Bearing Status Yes During Gait Assistive Devices Assistive Device Gait Belt Front Wheeled Walker Orthotic/Prosthetic Devices or Brace: No Gait Deviations General Gait Pattern Antalgic Decreased Stride Length Decreased Feet Clearance Step-to Gait Factors Limiting Gait Function Factors Limiting Gait Function Decreased Activity Tolerance Decreased Sensation Decreased Strength Difficulty Following Directions Limited Range of Motion Pain Poor Balance Poor Safety Awareness M5 PT-IP Objective Assessments Start: 04/27/19 12:49 Freq: NEEDED Status: Active Protocol: Document 04/27/19 10:30 AB (Rec: 04/27/19 12:57 AB [id number]) Orientation Orientation/Cognition Level of Alertness Alert Orientation Name Place Situation Language Function Ability Hard of Hearing Memory Description Short Term Impaired Smoke Eater Impaired Strength Lower Extremity Strength Assessment Bilaterally Impaired Comments Strength Comments BLE 3+/5 Coordination Assessment Gross Coordination Gross Coordination WNL Sensation Assessment Sensation Gross Sensation WNL Muscle Tone Muscle Tone WNL Yes M6 PT-IP Treatment Start: 04/27/19 12:49 Freq: NEEDED Status: Active Protocol: Document 04/27/19 15:40 GGD (Rec: 04/27/19 16:44 GGD [id number]) Physical Therapy Treatment Exercises Exercises Ankle Pumps Gluteal Sets Quad Sets Education Education Provided Precautions M7 PT-IP Assessment and Plan Start: 04/27/19 12:49 Freq: NEEDED Status: Active Protocol: Document 04/27/19 15:40 GGD (Rec: 04/27/19 16:44 GGD [email or web address]) PT Summary Assessment and Plan Summary Assessment Summary Pt improving with mobility. She is unable to recall her precautions. She was able to progress gait, but had increase in foot pain with weight bearing. Pt need cues for hip precautions with sit < > stand. Frequency of Treatment Frequency Of Treatment Twice a Day Treatment Plan Physical Therapy Treatment Plan Bed Mobility Training Transfer Training Gait Training Therapeutic Exercise Balance Retraining Post Op Education Discharge Planning Hot or Cold Pack Neuromuscular Re-ed Coordination Retraining Manual Therapy Recommendations To Nursing Amount of Assist Needed 1 Person Assist Discharge Recommendations PT Discharge Recommendations Home with 03/05 Assist Home Health SNF Rehab
[2019-04-27 16:39] VITALS: BP 131/56; PULSE 54; RESP 16; TEMP 36.7; O2SAT 98
--- NOTE | 2019-04-27 16:52 | P.PN_ITS ---
Subjective Date Patient Seen: 04/27/19 Time Patient Seen: 13:49 Interval history: Maricarmen notes fairly mild right hip pain. She was pulling weeds in the garden when she fell over and dislocated her hip. She does note bilateral feet pain which she has had since her surgery. She has a known history of pretty severe L4-5 spinal stenosis. Exam Vital Signs (past 8 hours): - 04/27/19 11:18 04/27/19 16:39 Temperature 98.5 F 98.0 F Pulse Rate 53 L 54 L Respiratory Rate 16 16 Blood Pressure 114/52 L 131/56 L Pulse Oximetry 99 98 Oxygen Delivery Method Room Air Oxygen Flow Rate 0 Narrative Exam Narrative: Minimal pain with range of motion right hip act able to actively flex her right hip, mild bilateral swelling in the feet, adequate capillary refill bilaterally, is able to fire toe flexors and extensors mild numbness in bilateral feet with moderate swelling in the left foot. Objective Labs Result Diagrams: 04/25/19 23:53 04/25/19 23:53 Assessment & Plan Assessment & Plan narrative: Maricarmen is doing reasonably well from her right hip dislocation standpoint. I have recommended that we give her a dose of oral Decadron I think that her symptoms in her feet may be associated with radiculop athy secondary to being in a hyperextended position and immobilized. I have strongly encouraged her to work on range of motion exercises in bilateral feet and encouraged her to be out of bed to a chair as much as possible. Anticipate discharge to home tomorrow. She should continue with posterior hip precautions. I encouraged her not to garden and she has dislocated twice when she has fallen in the garden. Quality VTE Deep Vein Thrombosis/Pulmonary Embolism Present on Admission: No
[2019-04-27 19:27] VITALS: BP 118/60; PULSE 59; RESP 18; TEMP 36.8; O2SAT 99
[2019-04-27] MEDS: SODIUM CHLORIDE 0.9% FLUSH 10 ML IV (20:37)
[2019-04-27] MEDS: DEXAMETHASONE 4 MG/ML VIAL 2 MG IV (20:37)
[2019-04-27] MEDS: MAGNESIUM HYDROXIDE 30 ML UDC PO (20:38)
[2019-04-27 23:20] VITALS: BP 133/65; PULSE 55; RESP 17; TEMP 36.9; O2SAT 97
[2019-04-28 05:30] VITALS: BP 144/60; PULSE 53; RESP 16; TEMP 36.8; O2SAT 99
[2019-04-28] MEDS: LEVOTHYROXINE 50 MCG TABLET PO (05:58)
[2019-04-28] MEDS: FUROSEMIDE 20 MG TABLET PO (08:24)
[2019-04-28] MEDS: SODIUM CHLORIDE 0.9% FLUSH 10 ML IV (08:24)
[2019-04-28] MEDS: ACETAMINOPHEN 325 MG TABLET 975 MG PO (08:24)
--- NOTE | 2019-04-28 10:33 | PM.DS.1 ---
History of Present Illness Date Patient Seen: 04/28/19 Time Patient Seen: 10:34 Chief complaint: Dislocated Hip Narrative: Hospital day 3, postop day 2 following right total hip arthroplasty dislocation and relocation by Dr. Floyd. Patient has remained stable. She has been doing PT. They do feel that she needs some assist. She does have a son that is going to stay with her over the weekend. Still needing cuing for postop hip precautions. Patient does live alone. She was seen by Dr. Swain this morning who recommended she go home. Discharge Providers Date of admission: 04/26/19 00:54 Discharge Date: 04/28/19 Consults: 04/26/19 18:01 Consult to Discharge Planning Routine Comment: Consult to Physical Therapy Evaluate & Treat Comment: Physician Instructions: Evaluate and Treat 04/27/19 08:41 Consult to Occupational Therapy Evaluate & Treat Comment: Physician Instructions: Evaluate and treat Discharge provider: Tom Handy PA-C Summary Discharge Diagnosis: Status post right total hip arthroplasty dislocation/relocation. Hospital Course: Patient brought to hospital on 04/26/2019 after having dislocated her right total hip while working in the garden. Unable to relocate the hip in the emergency room. She was brought to the operative room by Dr. Floyd under anesthesia with good reduction of hip. She has progressed with PT. Ready for discharge home on postop day 2. Status at Discharge Cognitive/behavioral status at discharge: oriented Functional status at discharge: uses cane/walker Overall status at discharge: patient is progressing back to baseline Time Spent with Patient Less than 30 minutes Exam Vital Signs (past 8 hours): - 04/28/19 05:30 Temperature 98.3 F Pulse Rate 53 L Respiratory Rate 16 Blood Pressure 144/60 H Pulse Oximetry 99 Oxygen Delivery Method Room Air Oxygen Flow Rate 0 Narrative Exam Narrative: Alert, oriented no acute distress sitting in chair. Legs. Patient able do full leg extension from sitting position. No calf pain or swelling. Pulses symmetrical. Objective Labs Result Diagrams: 04/25/19 23:53 04/25/19 23:53 Discharge Plan Discharge Plan Discharge Problem: Dislocation, hip Patient Disposition: Home Discharge comment: Discharge home after cleared by PT. Continue right posterior hip precautions x6 weeks. Discharge Med Rec/Prescriptions Prescriptions: Continued acetaminophen [Tylenol] 325 mg Capsule 650 mg PO Q4H PRN (Reason: pain) RF: 0 levothyroxine 50 mcg Capsule 50 mcg PO DAILY RF: 0 furosemide 20 mg Tablet 20 mg PO DAILY RF: 0 Provider Discharge Instructions Diet: Diet as Tolerated Activity: Ambulate as tolerated. Use walker as needed. Right posterior total hip precautions x6 weeks postop. Cold/Heat Therapy: Cold pack to right hip as needed. Visit Report/Discharge Packet Instructions: DI for Hip Dislocation -- Adult Discharge Data Attending Provider: Dov Floyd Admit Date/Time: 04/26/19 00:54 Quality VTE Deep Vein Thrombosis/Pulmonary Embolism Present on Admission: No
--- NOTE | 2019-04-28 10:42 | P.DS_ITS ---
History of Present Illness Chief complaint: Dislocated Hip Narrative: Hospital day 3, postop day 2 following right total hip arthroplasty d islocation and relocation by Dr. Floyd. Patient has remained stable. She has been doing PT. They do feel that she needs some assist. She does have a son that is going to stay with her over the weekend. Still needing cuing for postop hip precautions. Patient does live alone. She was seen by Dr. Swain this morning who recommended she go home. Discharge Providers Date of admission: 04/26/19 00:54 Discharge Date: 04/28/19 Consults: 04/26/19 18:01 Consult to Discharge Planning Routine Comment: Consult to Physical Therapy Evaluate & Treat Comment: Physician Instructions: Evaluate and Treat 04/27/19 08:41 Consult to Occupational Therapy Evaluate & Treat Comment: Physician Instructions: Evaluate and treat Discharge provider: Tom Handy PA-C Exam Vital Signs (past 8 hours): - 04/28/19 05:30 Temperature 98.3 F Pulse Rate 53 L Respiratory Rate 16 Blood Pressure 144/60 H Pulse Oximetry 99 Oxygen Delivery Method Room Air Oxygen Flow Rate 0 Objective Labs Result Diagrams: 04/25/19 23:53 04/25/19 23:53 Discharge Plan Discharge Plan Patient Disposition: Home Discharge comment: Discharge home after cleared by PT. Continue right posterior hip precautions x6 weeks. Patient needs postop visit at Orthopedic office in [address] Swain or ESTEFANY. Discharge Med Rec/Prescriptions Prescriptions: Continued acetaminophen [Tylenol] 325 mg Capsule 650 mg PO Q4H PRN (Reason: pain) RF: 0 levothyroxine 50 mcg Capsule 50 mcg PO DAILY RF: 0 furosemide 20 mg Tablet 20 mg PO DAILY RF: 0 Provider Discharge Instructions Diet: Diet as Tolerated Activity: Ambulate as tolerated. Use walker as needed. Right posterior total hip precautions x6 weeks postop. Cold/Heat Therapy: Cold pack to right hip as needed. Visit Report/Discharge Packet Instructions: DI for Hip Dislocation -- Adult Discharge Data Attending Provider: Dov Floyd Admit Date/Time: 04/26/19 00:54 Quality VTE Deep Vein Thrombosis/Pulmonary Embolism Present on Admission: No
--- NOTE | 2019-04-28 10:43 | PC.NURSE ---
Pt very concerned about her wallet and credit cards that are not in her purse. Pt does not recollect signing for items to be placed in safe or sent with family. Coordinator removed items from safe and Pt signed for their return to her possession.
[2019-04-28 10:57] VITALS: BP 115/53; PULSE 68; RESP 17; TEMP 36.7; O2SAT 99
--- NOTE | 2019-04-28 11:07 | PC.NURSE ---
Pt has worked with P.T. and been cleared for discharge. Pt is dressed and packed up with family member in the room. HL and HV removed. Went over d/c instructions with Pt and family member. Discussed d/c meds, time of last dose, reviewed stroke education, follow up, wound dressing, icing of knee, and encouraged fluid intake to prevent constipation or dehydration. Pt denies further questions and is ready to be taken out to POV with Daughter and all belongings.
--- NOTE | 2019-04-28 11:28 | PC.NURSE ---
Pt has had IV removed, denies pain, has showered with assistance from O.T. and has been cleared. Pt is awaiting friend to come and pick her up to take her home. Went over d/c instructions with Pt. - discussed d/c meds, time of last dose, reviewed stroke education, and follow up with Dr. Swain in 2 weeks, Pt's wallet was in the safe and returned to Pt and signed for by Pt. Pt denies further questions and will be taken out via w/c by HALL SUPERVISOR to pov with friend and all belongings.
--- NOTE | 2019-04-28 12:07 | PT.IPTN ---
Current Diagnoses Dislocation of internal right hip prosthesis, initial encounter (04/26/19) Surgery Performed Operation Date: 04/26/19 16:00 Actual Procedures p Closed Reduction Dislocated Hip(Right) - Dov Floyd MD Physical Therapy Treatment Note M2 PT-IP Current Condition Start: 04/27/19 12:49 Freq: NEEDED Status: Active Protocol: Document 04/27/19 10:30 AB (Rec: 04/27/19 12:57 AB [id number]) Physical Therapy Current Condition Current Condition Evaluation Date 04/27/19 Treatment Diagnosis R KRISTEN dislocation s/p reduction; difficulty in walking Onset Date 04/26/19 Precautions Posterior Hip Precautions No Hip Flexion > 90 degrees No Hip Internal Rotation No Hip Adduction Weight Bearing Status Weight Bearing Status Weight Bear as Tolerated M3 PT-IP Subjective Start: 04/27/19 12:49 Freq: NEEDED Status: Active Protocol: Document 04/28/19 11:50 GGD (Rec: 04/28/19 12:06 GGD [id number]) Subjective Physical Therapy Visit Type Type Treatment Note Visit Start Time 11:25 Visit Stop Time 11:50 Total Visit Minutes 25 Number of CRAFT SUPERINTENDENT Visits 2 Physical Therapy Visit Comments Patient Comments Pt states she feeling better. Therapy Pain Assessment Pain When Pain Assessed At Rest Pain Present Pain Present Denied Pain M4 PT-IP Mobility and Gait Start: 04/27/19 12:49 Freq: NEEDED Status: Active Protocol: Document 04/28/19 11:50 GGD (Rec: 04/28/19 12:06 GGD [id number]) PT-Transfer Assessment Sit to and From Stand Sit to and from Stand Contact Guard Assistance 1 Person Assistance Use of Upper Extremities Equipment Transfer Assistive Device Gait Belt Front Wheeled Walker Orthotic/Prosthetic Devices or Brace: No Transfers Transfer Destination Chair Transfer Ability Level of Assist Contact Guard Assistance 1 Person Assistance Use of Upper Extremities Gait Assessment Gait Gait Assistance Required: Contact Guard Assist Distance (Feet) 100 Able to Maintain Weight Bearing Status Yes During Gait Assistive Devices Assistive Device Gait Belt Front Wheeled Walker Orthotic/Prosthetic Devices or Brace: No Gait Deviations General Gait Pattern Antalgic Decreased Stride Length Decreased Feet Clearance Step-to Gait Factors Limiting Gait Function Factors Limiting Gait Function Decreased Activity Tolerance Decreased Sensation Decreased Strength Difficulty Following Directions Limited Range of Motion Pain Poor Balance Poor Safety Awareness Stair Climbing Assessment Evaluation Level of Assist On Stairs Contact Guard Assistance Devices Stair Climbing Assistive Devices Left Railing Technique/Endurance Stair Climbing Direction Ascend and Descend Stair Climbing Technique Step to Step Number of Steps Climbed 1 Stair Climbing Set # Repetitions (reps) 1 M5 PT-IP Objective Assessments Start: 04/27/19 12:49 Freq: NEEDED Status: Active Protocol: Document 04/27/19 10:30 AB (Rec: 04/27/19 12:57 AB [id number]) Orientation Orientation/Cognition Level of Alertness Alert Orientation Name Place Situation Language Function Ability Hard of Hearing Memory Description Short Term Impaired Meat Selector Impaired Strength Lower Extremity Strength Assessment Bilaterally Impaired Comments Strength Comments BLE 3+/5 Coordination Assessment Gross Coordination Gross Coordination WNL Sensation Assessment Sensation Gross Sensation WNL Muscle Tone Muscle Tone WNL Yes M6 PT-IP Treatment Start: 04/27/19 12:49 Freq: NEEDED Status: Active Protocol: Document 04/28/19 11:50 GGD (Rec: 04/28/19 12:06 GGD [id number]) Physical Therapy Treatment Exercises Exercises Ankle Pumps Gluteal Sets Quad Sets Education Education Provided Precautions M7 PT-IP Assessment and Plan Start: 04/27/19 12:49 Freq: NEEDED Status: Active Protocol: Document 04/28/19 11:50 GGD (Rec: 04/28/19 12:06 GGD [id number]) PT Summary Assessment and Plan Summary Assessment Summary PT progressing with mobility. She able to recall 2/3 hip precautions, but needs mod cues for hip precautions with mobility. Frequency of Treatment Frequency Of Treatment Twice a Day Treatment Plan Physical Therapy Treatment Plan Bed Mobility Training Transfer Training Gait Training Therapeutic Exercise Balance Retraining Post Op Education Discharge Planning Hot or Cold Pack Neuromuscular Re-ed Coordination Retraining Manual Therapy Recommendations To Nursing Amount of Assist Needed 1 Person Assist Discharge Recommendations PT Discharge Recommendations Home with 03/05 Assist Home Health SNF Rehab
--- NOTE | 2019-04-28 12:31 | OT.IP.TRT ---
Current Diagnoses Dislocation of internal right hip prosthesis, initial encounter (04/26/19) Surgery Performed Operation Date: 04/26/19 16:00 Actual Procedures p Closed Reduction Dislocated Hip(Right) - Dov Floyd MD Occupational Therapy Treatment Note M2 OT-IP Current Condition Start: 04/27/19 16:58 Freq: Status: Active Protocol: Document 04/27/19 10:12 PJM (Rec: 04/27/19 17:21 PJM [id number]) Occupational Therapy Current Condition Current Condition Evaluation Date 04/27/19 Treatment Diagnosis decr'd self care, functional mobility due to R hip dislocation (2nd time) Diagnosis Onset Date 04/26/19 Post Operative Precautions Posterior Hip Precautions No Hip Flexion > 90 degrees No Hip Internal Rotation No Hip Adduction Weight Bearing Status Weight Bearing Status Weight Bear as Tolerated M3 OT- IP Subjective and Pain Start: 04/27/19 16:58 Freq: Status: Active Protocol: Document 04/28/19 11:47 CCC (Rec: 04/28/19 12:28 [facility] [id number]) OT- Subjective Occupational Therapy Visit Type Type Treatment Note Visit Start Time 10:30 Visit Stop Time 11:25 Total Visit Minutes 55 Occupational Therapy Visit Comments Patient Comments Pt wanting to shower. Pt admits that she is not thinking well today as distracted by not been able to find her credit cards earlier . See comments in cognition below. Patient/Caregiver Goals Pt wants to go home. OT Pain Assessment Pain When Pain Assessed At Rest Pain Present Pain Present Denied Pain M4 OT- IP ADL's Start: 04/27/19 16:58 Freq: Status: Active Protocol: Document 04/28/19 11:47 CCC (Rec: 04/28/19 12:28 [facility] [id number]) OT ADL-Grooming General Evaluation Grooming Ability Independent Comments OT Grooming Comments Able to do while standing with FWW by the sink. OT ADL-Dressing General Eval Lower Body Dressing Ability Standby Assistance Assistive Devices Dressing Assistive Devices Sound Art Instructor Comments OT Dressing Comments Pt did not remember information given by therapist yesterday for LB dressing needs and had to be re- educated. Pt states will not wear socks and just slip on shoes at home. OT ADL-Toileting General Evaluation Toileting Ability Independent Comments OT Toileting Comments Pt able to wipe appropriately, continue to educated of not to bend too far forwards to wipe, and to wipe while standing would be safer. OT ADL-Bathing Bathing Type Bathing Type Shower General Evaluation Bathing Ability Minimal Assistance Areas Needing Assistance Wash/Dry Perineal Area Comments OT Bathing Comments Pt able to stand with FWW for the shower. Pt states neighbor can come by to help assist her for showering. Pt needing assist to wash her back as at home uses a curved sponge that can reach her back. Pt not open to having a shower chair. M5 OT- IP IADL's Start: 04/27/19 16:58 Freq: Status: Active Protocol: Document 04/27/19 10:12 PJM (Rec: 04/27/19 17:21 PJM [id number]) OT-Instrumental Activities of Daily Living Deficits IADL Deficits Identified Deficits Home Safety Awareness Awareness of Need for Assistance at Home Good Awareness Medication Management Medication Management Comments pt appears to have some short term memory deficits but states she manages her own medications Money Management Money Management Comments pt appears to have some short term memory deficits but states she manages her own finances Meal Preparation Meal Preparation Comments pt may need some assist with meal prep until endurance and foot pain improves Intermediate Project Manager Intermediate Project Manager Comments pt will need assist until endurance and mobility improve Driving Driving Comments pt will need assist with driving; pt states her neighbor will pick her up from hospital M6 OT- IP Functional Cognition Start: 04/27/19 16:58 Freq: Status: Active Protocol: Document 04/28/19 11:47 [facility] (Rec: 04/28/19 12:28 CCC [id number]) Cognitive Factors Limiting Selfcare Function Cognitive Ability Level of Alertness Alert Confusional State Patient Orientation Name Place Situation Attention Span Ability Capable of Focused Attention Capable of Sustained Attention Ability to Follow Commands Able to Follow One Step Commands Memory Description Short Term Impaired Safety Awareness Decreased Recall of Precautions Decreased Ability to Apply Precautions Underestimates Need for Assistance Problem Solving Ability Unable to Identify Errors Needs Assist to Identify Solutions Executive Function Ability Unable to Switch Focus Unable to Filter Distractions Unable to Remember Details Cognitive Comments Cognitive Assessment Comments Pt only able to recall 2/3 hip precautions. Pt today focused on this morning event of not being able to find her credit cards and then I was feeling knots in my stomach and should have waited 10 minutes but felt that I had to call the bank to cancel my credit cards. Pt had forgotten that the nurse had locked up her credit cards in the hospital safe. Pt is very hard of hearing therefore at the time pt may not have heard the nurse and /or forgot. Therefore, pt highly distracted and also very hard of hearing. Pt needing reminders to incorporate hip precautions. For safety awareness recommend that pt have 24/7 assist initially. Pt's son to stay with her this weekend, and pt looking to have neighbor or friend stay with her afterwards. Pt also open to home health coming to the house to continue to go over hip precautions for everyday needs. OT- Vision and Hearing OT- Hearing Assessment OT- Hearing Assessment Hearing Impaired Use of Hearing Aids M7 OT- IP Mobility and Balance Start: 04/27/19 16:58 Freq: Status: Active Protocol: Document 04/28/19 11:47 [facility] (Rec: 04/28/19 12:28 [facility] [id number]) OT-Transfer Assessment Sit to and From Stand Sit to and from Stand Standby Assistance Transfers Transfer Ability Standby Assistance Technique Transfer Destination Chair Shower Stall Toilet Transfer Technique Stand Step Pivot Devices Transfer Assistive Devices Gait Belt Front Wheeled Walker Comments Mobility Comments SBA with FWW, occasional vc to keep fww in front of her. OT- Balance Assessment Sitting Balance and Reactions Static Sitting Balance Ability Normal Dynamic Sitting Balance Ability Normal Standing Balance and Reactions Static Standing Balance Ability Normal Dynamic Standing Balance Ability Good M8 OT- IP Objective Assessments Start: 04/27/19 16:58 Freq: Status: Active Protocol: Document 04/27/19 10:12 PJM (Rec: 04/27/19 17:21 PJM [id number]) OT Gross Range of Motion Upper Extremity Range of Motion Assessment Within Functional Limits ROM Impairments except pt c/o R shoulder pain at end range scpation fo about 130 degrees due to recent fall in garden and old injuries OT Strength Upper Extremity Strength Assessment Within Functional Limits Hand Environmental Studies Department Chair Strength Hand Dominance Right OT- Coordination Assessment Comments Coordination Comments BUE WFL OT-Muscle Tone Assessment Muscle Tone WNL Yes OT Sensation Assessment Comments Summary Comments Pt denies deficits in BUE's. M9 OT- IP Assessment and Plan Start: 04/27/19 16:58 Freq: Status: Active Protocol: Document 04/28/19 11:47 [facility] (Rec: 04/28/19 12:28 [facility] [id number]) OT Summary Assessment and Plan Potential Rehabilitation Potential Good Analytic Complexity at Evaluation Low Summary OT Impairments Functional Cognition Functional Mobility Dressing Toileting Bathing Toilet Transfers Shower Transfers Progress Towards Goals Progressing Toward Goals Assessment Summary Pt continues to have difficulty to recall and incorporate hip precautions and needing cues for safety awareness. Pt would benefit from home health and 24/ assist at this time. Goals Grooming Goal Independent Dressing Goal Standby Assistance Toileting Goal Independent Bathing Goal Standby Assistance Toilet Transfer Goal Standby Assistance Shower Transfer Goal Standby Assistance Patient/Caregiver Education Goal Demonstrate Post-Op Precautions Demonstrate Energy Conservation and Pacing Caregiver Independent Assisting Patient Days to Meet Goals 1 Frequency of Treatment Frequency Of Treatment Once a Day Discharge Recommendations OT Discharge Recommendations Home with 24/7 Assist Home Health Home Equipment Needs Shower chair
--- NOTE | 2019-04-28 14:52 | CM.DPNOTE ---
DC Note: PT has cleared pt for home and pt agreeable to such, see therapy notes for detail. Dr Swain wants to DC pt today. Met w/pt to review DCP, also reviewed IMM which pt signed. Pt eager to return home and states she has a friend coming to pick her up. Pt agreeable to HH and has no agency preference. RN/PT/OT/DOORPERSON/LEADITE WORKER ordered, this cleared by ESTEFANY Handy today before pt's DC. Pt says she is very [place] but it is helpful when people slow down when they speak with her either over the phone or in person . Pt says her son will stay with her all weekend and she has neighbors that can check on her throughout next week. Faxed referral packet to [facility] based on quickest turn around time; Facesheet, order and signed F2F, H+P/DC Summary and therapy notes. TC placed to Tala at [facility], she said she would look for this packet and call if any Qs. Pt will have f/u kd, w/in next 24 hrs. P: DC home w/family and [facility] via pov today. REYMUNDO Barrios
== END 2019-04-28 14:20 | disposition home health service (06) | DRG 561 ==
LOC: ED 04-26 00:45 → AC 04-26 00:56
PROVIDERS: Admitting Provider Orthopaedic Surgery Orthopaedic Surgery of the Spine; Emergency Provider Emergency Medicine; Visit Provider Orthopaedic Surgery Orthopaedic Surgery of the Spine
PROC: 0SW9XJZ Revision of Synthetic Substitute in Right Hip Joint, External Approach (ICD-10-PCS; principal; 2019-04-26 16:00)
DX: T84.020A Dislocation of internal right hip prosthesis, initial encounter (principal); E03.9 Hypothyroidism, unspecified; Y93.H2 Activity, gardening and landscaping; W18.30XA Fall on same level, unspecified, initial encounter; Y92.007 Garden or yard of unspecified non-institutional (private) residence as the place of occurrence of the external cause
CPT/HCPCS: 36415; 71045; 73501; 73502; 76000; 80053; 85025; 85610; 85730; 97116; 97162; 97165; 97530; 97535; 99282; 99284; J1100; J2270; J2405; J2704